=== PATIENT | female | born 1965 | race Caucasian/White ===

== ENCOUNTER 2020-07-19 11:36 | Outpatient (CLI) | payer OTHER, SELFPAY ==
[2020-07-19 12:22] LABS: Hematocrit 41.3 % (37.0-47.0); Hemoglobin 13.5 g/dL (12.0-15.0)
[2020-07-19 12:46] LABS: Iron 106 ug/dL (37-170)
[2020-07-19 12:55] LABS: Percent Iron Saturation 27 % (20-50)
[2020-07-19 13:09] LABS: Thyroid Stimulating Hormone 0.827 uIU/mL (0.465-4.680)
[2020-07-19 13:14] LABS: Vitamin D 25 Hydroxy 17.9 ng/mL
== END 2020-07-19 11:37 | disposition home or self-care (01) ==
LOC: ANHLAB 11:39
PROVIDERS: PCP Internal Medicine; Visit Provider Internal Medicine
DX: E03.9 Hypothyroidism, unspecified (principal); E55.9 Vitamin D deficiency, unspecified; D50.9 Iron deficiency anemia, unspecified; E53.8 Deficiency of other specified B group vitamins; D64.9 Anemia, unspecified
CPT/HCPCS: 36415; 82306; 82607; 82728; 83540; 83550; 84443; 85014; 85018

== ENCOUNTER 2021-01-25 11:25 | Emergency (ER) | payer OTHER, SELFPAY ==
[2021-01-25 11:45] VITALS: BP 135/79; PULSE 67; RESP 16; TEMP 36.6; O2SAT 100
--- NOTE | 2021-01-25 11:59 | ED.URI ---
HPI - URI/Sore Throat General Chief Complaint: Upper Respiratory Infection Stated Complaint: Sore throat Time Seen by Provider: 01/25/21 11:59 Source: patient and RN notes reviewed Mode of arrival: ambulatory Limitations: no limitations History of Present Illness HPI Narrative: 55-year-old female presents with concern for 5-day history of sore throat, fatigue, body aches, swollen glands, backaches. Reports she started coughing today. Reports she has been fully vaccinated for Covid. 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 She denies fever, chills, sweats. MD elicited complaint: sore throat Related Data Home Medications Medication Instructions Recorded Confirmed levothyroxine 100 mcg PO DAILY 01/25/21 01/25/21 Allergies Allergy/AdvReac Type Severity Reaction Status Date / Time Penicillins Allergy Mild rash Verified 01/25/21 11:52 Sulfa (Sulfonamide Allergy Unknown RASH Verified 01/25/21 11:52 Antibiotics) tramadol Allergy Unknown Verified 01/25/21 11:52 Review of Systems Review of Systems: Narrative: CONSTITUTIONAL: Reports malaise, fatigue. Denies chills, sweats, or fever. EYES: Denies visual changes, redness, or discharge. ENT: Reports rhinorrhea, congestion, ear fullness. Denies sinus pain, otalgia and sore throat. CARDIOVASCULAR: Denies chest pain, palpitations, or edema. RESPIRATORY: Reports cough. Denies dyspnea. GASTROINTESTINAL: Denies abdominal pain, nausea, vomiting, diarrhea SKIN: Denies rash or itching. MUSCULOSKELETAL: Reports myalgia. NEUROLOGIC: Reports headache. All systems reviewed & are unremarkable except as noted in HPI and below PMFSH Past Medical History Medical History (Updated 01/25/21 @ 12:32 by Apoorva Humphrey NP) Bronchitis Endometriosis History of angina Hyperthyroidism Hypothyroid Pre-diabetes Sleep apnea Surgical History Surgical History (System 03/03/20 @ 08:21 by Eula Boudreaux) History of gastric bypass History of tonsillectomy Social History Social History (System 03/03/20 @ 08:21 by Eula Boudreaux) Smoking packs per day: 1 Smoking cigarettes per day: 20.0 Smoking status: Current every day smoker Alcohol intake: never Gender identity (if verbalized by the patient): Female Comments At time of signature, agree with nursing past medical, surgical, social and family history. There is no relevant family history pertinent to the presenting complaint Exam Narrative: Exam Narrative: GENERAL: Well-appearing, well-nourished, and in no acute distress. HEAD: Normocephalic EYES: PERRLA, conjunctivae clear ENT: Nares clear, turbinates edematous and erythematous, clear discharge. Mucous membranes moist. TM pearly barakat with dull light reflex bilaterally; no tragal tenderness. Oropharynx erythematous without lesions. Tonsils not enlarged and without exudate, no drooling, no hoarseness, no trismus, uvula midline. NECK: Supple. No lymphadenopathy CHEST: Clear to auscultation, breath sounds equal. No wheezing, rhonchi, rales, or stridor. No respiratory distress, speaks in full sentences. HEART: Regular rate and rhythm. No murmur heard. SKIN: Warm, dry, no rash. NEURO: Alert and oriented x3. PSYCH: Normal mood and affect Course Course Emergency Course: Patient is aware of diagnosis, understands and agrees to treatment plan. Anticipatory guidance given. Patient agrees to follow-up as directed and is aware of reasons to seek care at the emergency department. Portions of this record may have been created with voice recognition software Vital Signs Vital signs: Vital Signs Temperature 97.9 F 01/25/21 11:45 Pulse Rate 67 01/25/21 11:45 Respiratory Rate 16 01/25/21 11:45 Blood Pressure 135/79 01/25/21 11:45 Pulse Oximetry 100 01/25/21 11:45 Temperature 97.9 F 01/25/21 11:45 Pulse Rate 67 01/25/21 11:45 Respiratory Rate 16 01/25/21 11:45 Blood Pressure 135/79 01/25/21 11:45
== END 2021-01-25 12:36 | disposition home or self-care (01) ==
PROVIDERS: Emergency Provider Nurse Practitioner; PCP Internal Medicine
DX: J06.9 Acute upper respiratory infection, unspecified (principal); Z20.822 Contact with and (suspected) exposure to COVID-19; G47.30 Sleep apnea, unspecified; R73.03 Prediabetes; E03.9 Hypothyroidism, unspecified; E05.90 Thyrotoxicosis, unspecified without thyrotoxic crisis or storm; N80.9 Endometriosis, unspecified; F17.210 Nicotine dependence, cigarettes, uncomplicated
CPT/HCPCS: 87081; 87426; 87880; 99213; C9803; G0463

== ENCOUNTER 2021-04-28 16:13 | Emergency (ER) | payer OTHER, SELFPAY ==
[2021-04-28 16:23] VITALS: BP 121/63; PULSE 82; RESP 16; TEMP 37; O2SAT 100
--- NOTE | 2021-04-28 16:36 | ED.URI ---
HPI - URI/Sore Throat General Chief Complaint: Upper Respiratory Infection Stated Complaint: Sore throat Time Seen by Provider: 04/28/21 16:36 Source: patient and RN notes reviewed Mode of arrival: ambulatory Limitations: no limitations History of Present Illness HPI Narrative: 55 year old female who presents to [facility] care with complaints of 1.5 weeks of complaints of frontal headache, pressure to face with pain to throat with swallowing. Patient states that it feels like someone is squeezing her throat,she has increase tiredness, loss of appetite, and some nasal congestion with drainage and pressure to her ears. Patient denies any shortness of breath, wheezing, or acute cough, respirations are even and nonlabored, SAO2 100% on room air. MD elicited complaint: sore throat Onset (ago): week(s) (1.5) Consistency: progressively worsening Description of mucous: clear Able to tolerate fluids by mouth: Yes Exacerbating factors: swallowing Relieving factors: nothing Associated symptoms: headache, rhinorrhea, nasal congestion, sore throat and other (ear pressure, back pain) Related Data Home Medications Medication Instructions Recorded Confirmed levothyroxine 100 mcg PO DAILY 01/25/21 01/25/21 Allergies Allergy/AdvReac Type Severity Reaction Status Date / Time Penicillins Allergy Mild rash Verified 04/28/21 16:35 Sulfa (Sulfonamide Allergy Unknown RASH Verified 04/28/21 16:35 Antibiotics) tramadol Allergy Unknown Verified 04/28/21 16:35 Review of Systems Review of Systems: Narrative: CONSTITUTIONAL: Denies fever, chills, or sweats. EYES: Denies visual changes, redness, or discharge. ENT: Positive for rhinorrhea, congestion, sore throat, pressure to her ears. CARDIOVASCULAR: Denies chest pain, palpitations, or edema. RESPIRATORY: Denies cough or dyspnea. GASTROINTESTINAL: Denies abdominal pain, nausea, vomiting, or diarrhea. GENITOURINARY: Denies dysuria or hematuria. SKIN: Denies rash or itching. MUSCULOSKELETAL:reports lumbar back pain, joint pain, or myalgia. NEUROLOGIC: Positive for frontal headache, no numbness, or weakness. PSYCHIATRIC: Denies anxiety or depression. All systems reviewed & are unremarkable except as noted in HPI and below PMFSH Past Medical History Medical History Bronchitis Endometriosis History of angina Hyperthyroidism Hypothyroid Pre-diabetes Sleep apnea Surgical History Surgical History History of gastric bypass History of tonsillectomy Family History Family History (Updated 05/03/21 @ 14:10 by Aury Galvan NP) Other Heart disease Hypertension Social History Social History Smoking packs per day: 1 Smoking cigarettes per day: 20.0 Smoking status: Current every day smoker Alcohol intake: never Gender identity (if verbalized by the patient): Female Comments At time of signature, agree with nursing past medical, surgical, social and family history. There is no relevant family history pertinent to the presenting complaint Exam Narrative: Exam Narrative: GENERAL: Well-appearing, well-nourished, and in no acute distress. HEAD: Normocephalic, atraumatic. EYES: PERRLA and EOMI. ENT: Nares red, clear rhinorrhea no epistaxis. Mucous membranes moist.TM's normal with good light reflex, Throat red with no exudates or lesions, no tonsil enlargement post nasal drainage noted, NECK: Supple. no lymphadenopathy CHEST: Clear to auscultation. No respiratory distress.SAO2 100% on room air HEART: Regular rate and rhythm. No murmur heard. Normal peripheral pulses. ABDOMEN: Soft, nontender, nondistended, normal active bowel sounds. EXTREMITIES: Normal range of motion. No edema. SKIN: Warm, dry, no rash. NEURO: No focal deficits. Alert and oriented x3. Course Vital Signs Vital signs: Vital Signs Temperature 3
== END 2021-04-28 17:14 | disposition home or self-care (01) ==
PROVIDERS: Emergency Provider Registered Nurse; PCP Internal Medicine
DX: J06.9 Acute upper respiratory infection, unspecified (principal); J02.9 Acute pharyngitis, unspecified; F17.210 Nicotine dependence, cigarettes, uncomplicated; Z98.84 Bariatric surgery status; N80.9 Endometriosis, unspecified; E03.9 Hypothyroidism, unspecified; G47.30 Sleep apnea, unspecified; I20.9 Angina pectoris, unspecified; E05.90 Thyrotoxicosis, unspecified without thyrotoxic crisis or storm
CPT/HCPCS: 87081; 87880; 99213; G0463

== ENCOUNTER 2021-12-11 16:14 | Outpatient (CLI) | payer OTHER, SELFPAY ==
[2021-12-11 17:54] LABS: Basophils Percent Auto 0.5 % (0.2-1.2); Eosinophils Absolute Auto 0.3 K/mm3 (0-0.3); Eosinophils Percent Auto 4.5 % (0-4.4); Hematocrit 41.7 % (37.0-47.0); Hemoglobin 13.2 g/dL (12.0-15.0); Immature Granulocyte Absolute 0.01 K/mm3 (0.00-0.031); Immature Granulocyte Percent A 0.2 % (0-0.5); Lymphocytes Absolute Auto 2.28 K/mm3 (0.9-3.2); Lymphocytes Percent Auto 34.4 % (18.3-44.2); Mean Corpuscular HGB Conc 31.7 g/dl (32-36); Mean Corpuscular Hemoglobin 30.1 pg (26-34); Mean Corpuscular Volume 95.2 fl (80-100); Mean Platelet Volume 9.4 fl (7.4-10.4); Monocytes Absolute Auto 0.4 K/mm3 (0.1-0.6); Monocytes Percent Auto 5.7 % (2.6-8.5); Neutrophils Absolute Auto 3.6 K/mm3 (1.3-6.7); Neutrophils Percent Auto 54.7 % (45.5-73.1); Platelet Count Result 204 k/mm3 (150-375); Red Blood Count 4.38 M/mm3 (4.2-5.4); Red Cell Distribution Width 12.8 % (11.5-14.5); White Blood Count 6.6 K/mm3 (4.5-10.0)
[2021-12-11 18:56] LABS: Iron 63 ug/dL (37-170)
[2021-12-11 19:05] LABS: Percent Iron Saturation 15 % (20-50)
== END 2021-12-11 16:15 | disposition home or self-care (01) ==
LOC: ANHLAB 16:17
PROVIDERS: PCP Internal Medicine; Visit Provider Internal Medicine
DX: D50.9 Iron deficiency anemia, unspecified (principal); D64.9 Anemia, unspecified
CPT/HCPCS: 36415; 82728; 83540; 83550; 85025

== ENCOUNTER 2022-06-18 14:48 | Outpatient (CLI) | payer OTHER, SELFPAY ==
[2022-06-18 15:12] LABS: Hematocrit 41.7 % (37.0-47.0); Hemoglobin 13.1 g/dL (12.0-15.0); Mean Corpuscular HGB Conc 31.4 g/dl (32-36); Mean Corpuscular Hemoglobin 29.2 pg (26-34); Mean Corpuscular Volume 93.1 fl (80-100); Mean Platelet Volume 9.1 fl (7.4-10.4); Platelet Count Result 233 k/mm3 (150-375); Red Blood Count 4.48 M/mm3 (4.2-5.4); Red Cell Distribution Width 13.1 % (11.5-14.5); White Blood Count 7.2 K/mm3 (4.5-10.0)
[2022-06-18 15:20] LABS: Alanine Aminotransferase 13 U/L (6-35); Albumin Level 4.2 g/dL (3.5-5.1); Alkaline Phosphatase 88 U/L (38-126); Anion Gap 7 mmol/L (8-16); Aspartate Amino Transferase 23 U/L (14-36); Bilirubin,Total 0.5 mg/dL (0.2-1.3); Blood Urea Nitrogen 10 mg/dL (7-17); Calcium 9.1 mg/dL (8.4-10.2); Carbon Dioxide 29 mmol/L (22-30); Chloride 102 mmol/L (98-107); Cholesterol 216 mg/dL (0-200); Estimated Glomerular Filt Rate > 60; Glucose 94 mg/dL (65-110); HDL Direct 71 mg/dL; Potassium 3.8 mmol/L (3.4-5.0); Sodium 138 mmol/L (137-145); Triglycerides 117 mg/dL (<150)
[2022-06-18 15:27] LABS: Hemoglobin A1C 5.2 % (<5.7)
[2022-06-18 15:29] LABS: Iron 115 ug/dL (37-170)
[2022-06-18 15:30] LABS: LDL Cholesterol Direct 95 mg/dL
[2022-06-18 15:39] LABS: Percent Iron Saturation 28 % (20-50)
[2022-06-18 15:50] LABS: Thyroid Stimulating Hormone 0.311 uIU/mL (0.465-4.680)
[2022-06-18 16:07] LABS: Vitamin D 25 Hydroxy 17.9 ng/mL
== END 2022-06-18 14:49 | disposition home or self-care (01) ==
LOC: ANHLAB 14:50
PROVIDERS: PCP Internal Medicine; Visit Provider Nurse Practitioner
DX: R73.03 Prediabetes (principal); E55.9 Vitamin D deficiency, unspecified; Z13.220 Encounter for screening for lipoid disorders; E03.9 Hypothyroidism, unspecified; E53.8 Deficiency of other specified B group vitamins; Z79.899 Other long term (current) drug therapy; D50.9 Iron deficiency anemia, unspecified
CPT/HCPCS: 36415; 80053; 80061; 82306; 82607; 83036; 83540; 83550; 84443; 85027

== ENCOUNTER 2022-06-22 14:20 | Emergency (ER) | payer OTHER, SELFPAY ==
[2022-06-22 14:29] VITALS: BP 110/73; PULSE 72; RESP 16; TEMP 37.3; O2SAT 99
--- NOTE | 2022-06-22 14:41 | ED.URI ---
HPI - URI/Sore Throat General Chief Complaint: Upper Respiratory Infection Stated Complaint: uri Time Seen by Provider: 06/22/22 14:43 History of Present Illness HPI Narrative: Estela Ramirez is a 57 yo female with hypothyroid, chronic back pain, who comes to [facility] with 1 day of symptoms of sore throat fever not feeling well. She came here from work she is being tested for both COVID and strep based on her symptoms Related Data Allergies Allergy/AdvReac Type Severity Reaction Status Date / Time Penicillins Allergy Mild rash Verified 06/22/22 14:27 Sulfa (Sulfonamide Allergy Unknown RASH Verified 06/22/22 14:27 Antibiotics) Review of Systems Review of Systems: CONSTITUTIONAL: Denies fever, chills, sweats. EYES: Denies visual changes, redness, discharge. ENT: Denies rhinorrhea, congestion, sore throat, otalgia. CARDIOVASCULAR: Denies chest pain, palpitations, edema. RESPIRATORY: Denies dyspnea, wheezing, cough GASTROINTESTINAL: Denies abdominal pain, nausea, vomiting, diarrhea. GENITOURINARY: Denies dysuria, hematuria, abnormal discharge SKIN: Denies rash or itching. NEUROLOGIC: Denies numbness, or focal weakness. PSYCHIATRIC: Denies anxiety or depression. Sore throat and fever PMFSH Past Medical History Medical History Bronchitis Endometriosis History of angina Hyperthyroidism Hypothyroid Pre-diabetes Sleep apnea Surgical History Surgical History History of gastric bypass History of tonsillectomy Family History Family History Other Heart disease Hypertension Social History Social History Smoking packs per day: 1 Smoking cigarettes per day: 20.0 Smoking status: Current some day smoker Alcohol intake: never Gender identity (if verbalized by the patient): Female Comments At time of signature, I agree with nursing past medical, surgical, social and family history. There is no relevant family history pertinent to the presenting complaint. Exam Narrative: GENERAL: This is a well-nourished, well-developed patient, in mild distress. Is fatigued HEAD: normocephalic, atraumatic. EYES: . Sclera clear/white. Vision is grossly intact. EARS: External ears normal, auditory canals clear and without drainage, TMs normal without perforation. Hearing grossly intact. NOSE: External nose normal without nasal discharge, nares without redness, no rhinorrhea. THROAT: Mucous membranes moist, posterior pharynx erythema NECK: Neck supple, non-tender CARDIOVASCULAR: Regular rate and rhythm without murmurs, gallops, or rubs. RESPIRATORY: Clear to auscultation. Breath sounds equal bilaterally. No wheezes, rales, or rhonchi. GASTROINTESTINAL: Abdomen soft, non-tender, SKIN: warm, intact with no suspicious lesions or rash, good texture and turgor. NEURO: awake, alert, and oriented to person, place and time. There were no obvious focal neurologic abnormalities. Steady gait EXTREMITIES: Normal range of motion. BACK: Nontender without deformity Course Course Emergency Course: Patient comes with complaints of fever and upper respiratory symptoms started yesterday Tested for COVID and strep Positive for COVID Discussed with patient guidelines from the CDC currently of 5 days off work 5 days with mask Level of Care: Express Care Visit Vital Signs Vital signs: Vital Signs Temperature 99.2 F 06/22/22 14:29 Pulse Rate 72 06/22/22 14:29 Respiratory Rate 16 06/22/22 14:29 Blood Pressure 110/73 06/22/22 14:29 Pulse Oximetry 99 06/22/22 14:29 Oxygen Delivery Room Air 06/22/22 14:29 Temperature 99.2 F 06/22/22 14:29 Pulse Rate 72 06/22/22 14:29 Respiratory Rate 16 06/22/22 14:29 Blood Pressure 110/73 06/22/22 14:29 Pulse Oximetry 99 06/22/22 14:29 Oxygen D
== END 2022-06-22 15:26 | disposition home or self-care (01) ==
PROVIDERS: Emergency Provider Nurse Practitioner; PCP Internal Medicine
DX: U07.1 COVID-19 (principal); N80.9 Endometriosis, unspecified; E03.9 Hypothyroidism, unspecified; R73.03 Prediabetes; G47.30 Sleep apnea, unspecified; E05.90 Thyrotoxicosis, unspecified without thyrotoxic crisis or storm; I20.9 Angina pectoris, unspecified; Z98.84 Bariatric surgery status; F17.210 Nicotine dependence, cigarettes, uncomplicated
CPT/HCPCS: 87426; 87880; 99213; C9803; G0463

== ENCOUNTER 2022-11-22 15:23 | Outpatient (CLI) | payer OTHER, SELFPAY ==
[2022-11-24 15:30] LABS: PCP NEGATIVE ng/mL (<25)
[2022-12-02 08:53] LABS: Amphetamines NEGATIVE; Barbiturates NEGATIVE; Marijuana Metabolites NEGATIVE
[2022-12-02 08:54] LABS: Benzodiazepines NEGATIVE; Cocaine Metabolites NEGATIVE
== END 2022-11-22 15:24 | disposition home or self-care (01) ==
PROVIDERS: PCP Internal Medicine; Visit Provider Internal Medicine
DX: Z79.899 Other long term (current) drug therapy (principal)
CPT/HCPCS: 80307

== ENCOUNTER 2022-11-28 11:51 | Outpatient (CLI) | payer OTHER, SELFPAY ==
[2022-11-28 12:22] LABS: Hematocrit 38.5 % (37.0-47.0); Hemoglobin 12.1 g/dL (12.0-15.0); Mean Corpuscular HGB Conc 31.4 g/dl (32-36); Mean Corpuscular Hemoglobin 28.8 pg (26-34); Mean Corpuscular Volume 91.7 fl (80-100); Mean Platelet Volume 9.2 fl (7.4-10.4); Platelet Count Result 214 k/mm3 (150-375); White Blood Count 6.9 K/mm3 (4.5-10.0)
[2022-11-28 12:35] LABS: Alanine Aminotransferase 19 U/L (6-35); Albumin Level 3.9 g/dL (3.5-5.1); Alkaline Phosphatase 88 U/L (38-126); Anion Gap 3 mmol/L (8-16); Aspartate Amino Transferase 21 U/L (14-36); Bilirubin,Total 0.6 mg/dL (0.2-1.3); Blood Urea Nitrogen 11 mg/dL (7-17); Calcium 8.6 mg/dL (8.4-10.2); Carbon Dioxide 29 mmol/L (22-30); Chloride 108 mmol/L (98-107); Cholesterol 238 mg/dL (0-200); Estimated Glomerular Filt Rate > 60; Glucose 93 mg/dL (65-110); HDL Direct 74 mg/dL; Potassium 3.7 mmol/L (3.4-5.0); Sodium 140 mmol/L (137-145); Triglycerides 68 mg/dL (<150)
[2022-11-28 12:45] LABS: LDL Cholesterol Direct 113 mg/dL
[2022-11-28 12:58] LABS: Iron 117 ug/dL (37-170)
[2022-11-28 13:03] LABS: Thyroid Stimulating Hormone 0.625 uIU/mL (0.465-4.680)
[2022-11-28 13:07] LABS: Free T4 Free Thyroxine 1.41 ng/mL (0.78-2.19)
[2022-11-28 13:17] LABS: Percent Iron Saturation 27 % (20-50)
== END 2022-11-28 11:52 | disposition home or self-care (01) ==
LOC: ANHLAB 11:53
PROVIDERS: PCP Internal Medicine; Visit Provider Nurse Practitioner
DX: D50.9 Iron deficiency anemia, unspecified (principal); E78.5 Hyperlipidemia, unspecified; E03.9 Hypothyroidism, unspecified; R73.03 Prediabetes; E53.8 Deficiency of other specified B group vitamins; Z98.84 Bariatric surgery status; E55.9 Vitamin D deficiency, unspecified
CPT/HCPCS: 36415; 80053; 80061; 82306; 82607; 83036; 83540; 83550; 84439; 84443; 85027

== ENCOUNTER 2023-03-23 12:31 | Emergency (ER) | payer OTHER, SELFPAY ==
[2023-03-23 12:45] VITALS: BP 117/82; PULSE 73; RESP 16; TEMP 37.4; O2SAT 100
--- NOTE | 2023-03-23 13:16 | ED.GENADULT ---
HPI - General Adult General Chief complaint: Extremity Injury, Lower Stated complaint: Left Leg Pain Source: patient Mode of arrival: ambulatory Limitations: no limitations History of Present Illness HPI narrative: Patient presents for evaluation of pain in the left lower extremity for the past 6 weeks. She cannot identify any precipitating cause or injury. She initially had some bruising present with one area of induration beneath that. Since that time bruising has improved but she now reports 3 areas of induration in the affected area. Denies any significant leg swelling or erythema. No personal or family history of DVT or PE. She is not on exogenous estrogen. No recent surgeries. She does smoke approximately 1/2 pack of cigarettes per week. Denies any chest pain or shortness of breath. She reports a constant squeezing throbbing pain in the left lower leg. Related Data Allergies Allergy/AdvReac Type Severity Reaction Status Date / Time Penicillins Allergy Mild rash Verified 03/23/23 12:44 Sulfa (Sulfonamide Allergy Unknown RASH Verified 03/23/23 12:44 Antibiotics) Review of Systems Review of Systems: CONSTITUTIONAL: Denies fever, chills, or sweats. EYES: Denies visual changes, redness, or discharge. ENT: Denies rhinorrhea, congestion, sore throat, or otalgia. CARDIOVASCULAR: Denies chest pain, palpitations, or edema. RESPIRATORY: Denies cough or dyspnea. GASTROINTESTINAL: Denies abdominal pain, nausea, vomiting, or diarrhea. GENITOURINARY: Denies dysuria or hematuria. SKIN: Reports recent bruising to the left lower extremity MUSCULOSKELETAL: Reports pain and areas of induration to the left lower extremity. NEUROLOGIC: Denies headache, numbness, dizziness, or weakness. PSYCHIATRIC: Denies anxiety or depression. [facility] Past Medical History Medical History Bronchitis Endometriosis History of angina Hyperthyroidism Hypothyroid Pre-diabetes Sleep apnea Surgical History Surgical History History of gastric bypass History of tonsillectomy Family History Family History Other Heart disease Hypertension Social History Social History Smoking packs per day: 0.2 Smoking cigarettes per day: 4.0 Smoking status: Current every day smoker Alcohol intake: never Lack of Transportation: No Lack of Food: Sometimes True Current Housing: I Have Housing Concerned About Future Housing: No Difficulty Paying Gas/Electric Bills: No Difficulty Paying for Meds: YES Currently Unemployed: No Education: High School Diploma/GED Difficulty w/ Childcare or Family Care: No Living arrangements: with family Gender identity (if verbalized by the patient): Female Exam Narrative: GENERAL: Well-appearing, well-nourished, and in no acute distress. HEAD: Normocephalic, atraumatic. EYES: PERRLA and EOMI. ENT: Nares clear, no rhinorrhea or epistaxis. Mucous membranes moist. Oropharynx without tonsillar hypertrophy exudate or other lesions. Bilateral TMs pearly barakat nonbulging NECK: Supple. No adenopathy or masses. No carotid bruits or JVD CHEST: Clear to auscultation. No respiratory distress. No wheezes rales or rhonchi HEART: Regular rate and rhythm. No murmur heard. Normal peripheral pulses. ABDOMEN: Soft, nontender, nondistended, normal active bowel sounds. EXTREMITIES: Normal range of motion. There are(3) areas of induration noted to the left lower leg, all less than 5 mm in size which are tender to palpation. No edema. SKIN: Skin is warm moist and intact NEURO: No focal deficits. Alert and oriented x3. PSYCH: Normal mood and affect. Course Course Emergency Course: This is a 57-year-old female who presented for evaluation of induration and pa
== END 2023-03-23 13:15 | disposition short-term general hospital (02) ==
PROVIDERS: Emergency Provider Nurse Practitioner; PCP Family Medicine
DX: M79.662 Pain in left lower leg (principal); F17.210 Nicotine dependence, cigarettes, uncomplicated; N80.9 Endometriosis, unspecified; I25.10 Atherosclerotic heart disease of native coronary artery without angina pectoris; E05.90 Thyrotoxicosis, unspecified without thyrotoxic crisis or storm; E03.9 Hypothyroidism, unspecified; R73.03 Prediabetes; Z98.84 Bariatric surgery status
CPT/HCPCS: 99212; G0463

== ENCOUNTER 2023-03-23 13:30 | Emergency (ER) | payer OTHER, SELFPAY ==
--- NOTE | ~2023-03-23 | US_ITS ---
EXAMINATION: US venous doppler [facility] DATE: 03/23/2023 15:06 INDICATION: Left lower limb pain, swelling and palpable mass/lump TECHNIQUE: Grayscale ultrasound images without and with compression and Doppler ultrasound images of the left lower extremity veins were obtained. COMPARISON: None. FINDINGS: The visualized portions of left common femoral vein, profunda (deep) femoral vein, femoral vein, popl iteal vein, peroneal veins, posterior tibial veins, gastrocnemius vein and greater saphenous vein out flow are patent. There is increased echogenicity consistent with inflammation/edema in the subcutaneo us fat at the region of the palpable abnormalities without discrete abnormal masses or fluid collecti ons. IMPRESSION: 1. No deep venous thrombosis in the left lower limb. Reviewed, dictated and finalized at location A.
[2023-03-23 13:34] VITALS: BP 138/76; PULSE 73; RESP 16; TEMP 37; O2SAT 100
--- NOTE | 2023-03-23 15:02 | PC.NURSE ---
Patient off unit to US.
--- NOTE | 2023-03-23 15:21 | ED.LOWEXIN ---
HPI - Extremity Injury (Lower) General Chief Complaint: Extremity Injury, Lower Stated Complaint: left leg pain Time Seen by Provider: 03/23/23 13:59 Source: patient Mode of arrival: ambulatory Limitations: no limitations History of Present Illness HPI Narrative: Patient is a 57-year-old female who presents to ED with report of left calf pain. Patient reports having intermittent pain in her left calf for the last 6 weeks. She reports she noticed a tender knot to her upper calf when the pain first began. The larger knot has now progressed to three smaller knots. She complains of diffuse aching pain. Denies significant swelling. Denies warmth or erythema. Denies fevers. Denies numbness/tingling. Denies chest pain or difficulty breathing. Patient went to an urgent care today and was referred to the ED for ultrasound to rule out DVT versus superficial thrombophlebitis. Patient denies any history of blood clots. No known risk factors. Related Data Allergies Allergy/AdvReac Type Severity Reaction Status Date / Time Penicillins Allergy Mild rash Verified 03/23/23 14:13 Sulfa (Sulfonamide Allergy Unknown RASH Verified 03/23/23 14:13 Antibiotics) Review of Systems Review of Systems: CONSTITUTIONAL: Denies fever, chills, or sweats. SKIN: See HPI. MUSCULOSKELETAL: See HPI. NEUROLOGIC: Denies tingling, numbness, or weakness. All systems reviewed & are unremarkable except as noted in HPI and below PMFSH Past Medical History Medical History Bronchitis Endometriosis History of angina Hyperthyroidism Hypothyroid Pre-diabetes Sleep apnea Surgical History Surgical History History of gastric bypass History of tonsillectomy Family History Family History Other Heart disease Hypertension Social History Social History Smoking packs per day: 0.2 Smoking cigarettes per day: 4.0 Smoking status: Current every day smoker Alcohol intake: never Lack of Transportation: No Lack of Food: Sometimes True Current Housing: I Have Housing Concerned About Future Housing: No Difficulty Paying Gas/Electric Bills: No Difficulty Paying for Meds: YES Currently Unemployed: No Education: High School Diploma/GED Difficulty w/ Childcare or Family Care: No Living arrangements: with family Gender identity (if verbalized by the patient): Female Exam Narrative: GENERAL: Well appearing, well-nourished, non-toxic, in no acute distress. HEAD: Normocephalic, atraumatic. NECK: Supple. No adenopathy, no masses. RESPIRATORY: Airway patent, respirations nonlabored. Clear to auscultation bilaterally, no rales, rhonchi, wheezing. CARDIOVASCULAR: Regular rate and rhythm without murmurs, rubs, or gallops. Pedal pulses 2+ and equal bilaterally. MUSCULOSKELETAL: Moves all extremities. Strength/ROM intact without gross deformities. Mild tenderness to palpation throughout upper left posterior calf. 3 very small nodule/area of induration to upper calf, focally tender. No diffuse swelling to lower extremity. No erythema to lower extremity. Sensation intact. Good distal capillary refill. SKIN: Warm, dry, normal color. No rashes. NEURO: A&O X3. Speech clear. Cranial nerves II-XII grossly intact. Steady gait. No ataxic movements. PSYCHIATRIC: Appropriate mood and affect. Normal interaction. Course Vital Signs Vital signs: Vital Signs Temperature 98.6 F 03/23/23 13:34 Pulse Rate 73 03/23/23 13:34 Respiratory Rate 16 03/23/23 13:34 Blood Pressure 138/76 03/23/23 13:34 Pulse Oximetry 100 03/23/23 13:34 Temperature 98.6 F 03/23/23 13:34 Pulse Rate 73 03/23/23 13:34 Respiratory Rate 16 03/23/23 13:34 Blood Pressure 138/76 03/23/23 13:34 Pulse
[2023-03-23] MEDS: KETOROLAC (*BKC) 60 MG/2 ML VIAL IM (15:43)
== END 2023-03-23 16:06 | disposition home or self-care (01) ==
PROVIDERS: Emergency Provider Physician Assistant; PCP Family Medicine
DX: M79.662 Pain in left lower leg (principal); L08.9 Local infection of the skin and subcutaneous tissue, unspecified; N80.9 Endometriosis, unspecified; G47.30 Sleep apnea, unspecified; R73.03 Prediabetes; F17.210 Nicotine dependence, cigarettes, uncomplicated
CPT/HCPCS: 93971; 96372; 99284; J1885

== ENCOUNTER 2023-05-04 16:59 | Emergency (ER) | payer OTHER, SELFPAY ==
[2023-05-04 17:08] VITALS: BP 124/66; PULSE 80; RESP 16; TEMP 36.4; O2SAT 100
[2023-05-04 17:10] VITALS: BP 124/66; PULSE 80; RESP 16; TEMP 36.4; O2SAT 100
--- NOTE | 2023-05-04 17:40 | ED.URI ---
HPI - URI/Sore Throat General Chief Complaint: Upper Respiratory Infection Stated Complaint: Sinus Source: patient Mode of arrival: ambulatory Limitations: no limitations History of Present Illness HPI Narrative: 57-year-old female presents to [facility] with complaints sore throat, bilateral ear pressure, chest congestion, cough and sneezing the past 2 days. Patient reports that she has a history of chronic wheezing and normally uses her albuterol inhaler which she has since run out of. Patient denies fever, body aches, chills, nausea, vomiting or diarrhea. Patient denies sick contacts. Patient denies recent travel. Patient reports that she has been taking [id number] Tylenol and eating ice with minimal relief MD elicited complaint: sore throat, rhinorrhea and nasal congestion Onset (ago): day(s) (2) Able to tolerate fluids by mouth: Yes Exacerbating factors: swallowing Treatments prior to arrival: acetaminophen Related Data Allergies Allergy/AdvReac Type Severity Reaction Status Date / Time Penicillins Allergy Mild rash Verified 05/04/23 17:09 Sulfa (Sulfonamide Allergy Unknown RASH Verified 05/04/23 17:09 Antibiotics) Review of Systems Constitutional: Constitutional: Denies chills, Denies fatigue, Denies fever(s) and Denies weakness ENT: Denies dizziness, Denies epistaxis, Reports nasal congestion and Reports sore throat Comments: pain, bilateral ear pressure and pain Cardiovascular: Cardiovascular: Denies chest pain Respiratory: Respiratory: Reports cough, Denies dyspnea and Denies wheezing Gastrointestinal: Gastrointestinal: Denies diarrhea, Denies nausea and Denies vomiting Integumentary/Breasts: Skin/Breast: Denies rash Neurologic: Denies dizziness, Denies syncope and Denies headache(s) [facility] Past Medical History Medical History Bronchitis Endometriosis History of angina Hyperthyroidism Hypothyroid Pre-diabetes Sleep apnea Surgical History Surgical History History of gastric bypass History of tonsillectomy Family History Family History Other Heart disease Hypertension Social History Social History Smoking packs per day: 0.2 Smoking cigarettes per day: 4.0 Smoking status: Current every day smoker Alcohol intake: never Lack of Transportation: No Lack of Food: Sometimes True Current Housing: I Have Housing Concerned About Future Housing: No Difficulty Paying Gas/Electric Bills: No Difficulty Paying for Meds: YES Currently Unemployed: No Education: High School Diploma/GED Difficulty w/ Childcare or Family Care: No Living arrangements: with family Gender identity (if verbalized by the patient): Female Comments At time of signature, I agree with nursing past medical, surgical, social and family history. There is no relevant family history pertinent to the presenting complaint. Exam Const: General: healthy appearing and no acute distress Nutritional Appearance: well nourished Orientation/consciousness: patient oriented x3 Limitations: no limitations HENMT: Head: normal to inspection Ears: external ears normal, EAC's normal and TM abnormal dull bilateral and erythematous on the right and on the left Mouth: Yes moist mucous membranes Throat: uvula midline Other: mild erythema noted to posterior oropharynx Eyes: Conjunctivae: conjunctivae normal Neck: Neck: normal visual inspection and no lymphadenopathy Resp: Effort & Inspection: normal respiratory effort and not labored Auscultation: clear to auscultation bilaterally, no crackles, no rales and no rhonchi Cardio: Rate: regular rate Rhythm: regular rhythm Heart sounds: no murmurs Skin: General skin exam: normal color Rashes: no rashes Wounds: no wounds N
== END 2023-05-04 17:52 | disposition home or self-care (01) ==
PROVIDERS: Emergency Provider Nurse Practitioner Family; PCP Family Medicine
DX: H66.93 Otitis media, unspecified, bilateral (principal); J06.9 Acute upper respiratory infection, unspecified; Z20.822 Contact with and (suspected) exposure to COVID-19; F17.210 Nicotine dependence, cigarettes, uncomplicated; I20.9 Angina pectoris, unspecified; E03.9 Hypothyroidism, unspecified; R73.03 Prediabetes; E05.90 Thyrotoxicosis, unspecified without thyrotoxic crisis or storm; Z98.84 Bariatric surgery status
CPT/HCPCS: 87081; 87426; 87880; 99213; C9803; G0463

== ENCOUNTER 2023-07-19 20:55 | Emergency (ER) | payer OTHER, SELFPAY ==
[2023-07-19 20:56] VITALS: BP 124/79; PULSE 96; RESP 20; TEMP 36.8; O2SAT 99
--- NOTE | 2023-07-19 21:42 | ED.EXTPRO ---
HPI - Extremity Problem General Chief complaint: Extremity Problem,Nontraumatic Stated complaint: left leg swelling and pain Time Seen by Provider: 07/19/23 21:10 History of Present Illness HPI Narrative: Patient is a 58-year-old female presenting with left leg pain. States that she has had pain on the back of her calf for the last day or 2 that is worse with weightbearing. States that she was at work and she was struggling to walk as much as she needed to because of the pain. Denies any trauma. States that it looks more swollen than the right one. No redness. She went to urgent care and was advised to come here to evaluate for DVT. She denies chest pain or shortness of breath. No numbness or weakness. Denies further complaints. Related Data Allergies Allergy/AdvReac Type Severity Reaction Status Date / Time Penicillins Allergy Mild rash Verified 07/19/23 20:55 Sulfa (Sulfonamide Allergy Unknown RASH Verified 07/19/23 20:55 Antibiotics) Review of Systems Review of Systems: All systems reviewed & are unremarkable except as noted in HPI and below PMFSH Past Medical History Medical History Bronchitis Endometriosis History of angina Hyperthyroidism Hypothyroid Pre-diabetes Sleep apnea Surgical History Surgical History History of gastric bypass History of tonsillectomy Family History Family History Other Heart disease Hypertension Social History Social History Smoking packs per day: 0.2 Smoking cigarettes per day: 4.0 Smoking status: Current every day smoker Alcohol intake: never Lack of Transportation: No Lack of Food: Sometimes True Current Housing: I Have Housing Concerned About Future Housing: No Difficulty Paying Gas/Electric Bills: No Difficulty Paying for Meds: YES Currently Unemployed: No Education: High School Diploma/GED Difficulty w/ Childcare or Family Care: No Living arrangements: with family Gender identity (if verbalized by the patient): Female Exam Narrative: GENERAL: Well-appearing, in no acute distress, pleasant and cooperative HEAD: Normocephalic, atraumatic. EYES: PERRLA and EOMI. ENT: Grossly unremarkable NECK: Supple. CHEST: No respiratory distress. HEART: Regular rate and rhythm ABDOMEN: Nondistended EXTREMITIES: Mild tenderness of posterior upper left calf, no erythema or swelling that I can appreciate, DP pulses 2+ bilaterally SKIN: Warm, dry, no rash. NEURO: No focal deficits. Alert and oriented x3. PSYCH: Normal mood and affect. Course Vital Signs Vital signs: Vital Signs Temperature 98.3 F 07/19/23 20:56 Pulse Rate 96 07/19/23 20:56 Respiratory Rate 20 07/19/23 20:56 Blood Pressure 124/79 07/19/23 20:56 Pulse Oximetry 99 07/19/23 20:56 Oxygen Delivery Room Air 07/19/23 20:56 Temperature 98.3 F 07/19/23 20:56 Pulse Rate 62 07/19/23 23:46 Respiratory Rate 16 07/19/23 23:46 Blood Pressure 143/87 H 07/19/23 23:46 Pulse Oximetry 100 07/19/23 23:46 Oxygen Delivery Room Air 07/19/23 20:56 MDM - Extremity (Nontraumatic) MDM Narrative Medical decision making narrative: Patient is a 58-year-old female presenting with left calf pain. Vitals are normal. Exam remarkable for the above. Unfortunately, we do not have ultrasound at this time. We will check a D-dimer, give a shot of Toradol. D-dimer is within normal limits. Patient is safe for outpatient management. Advised Tylenol for pain control. We will send in a prescription for muscle relaxers. Advised PCP follow-up. Appropriate return precautions given. Patient voiced understanding and is agreeable with plan. Discharged in stable condition. Differential Diagnosis Differential diagnosis: Likely cellulit
[2023-07-19] MEDS: KETOROLAC 30 MG/ML VIAL (*BKC) IM (22:07)
[2023-07-19 23:07] LABS: D Dimer 0.32 ug/mL (<0.48)
[2023-07-19 23:46] VITALS: BP 143/87; PULSE 62; RESP 16; O2SAT 100
== END 2023-07-19 23:47 | disposition home or self-care (01) ==
PROVIDERS: Emergency Provider Emergency Medicine; PCP Family Medicine
DX: M79.662 Pain in left lower leg (principal); R73.03 Prediabetes; G47.30 Sleep apnea, unspecified; N80.9 Endometriosis, unspecified; Z98.84 Bariatric surgery status; F17.210 Nicotine dependence, cigarettes, uncomplicated
CPT/HCPCS: 36415; 85380; 96372; 99283; J1885

== ENCOUNTER 2023-10-15 16:34 | Emergency (ER) | payer OTHER, SELFPAY ==
--- NOTE | 2023-10-15 16:36 | ED.URI ---
HPI - URI/Sore Throat General Chief Complaint: Upper Respiratory Infection Stated Complaint: cough,fingers/toes tingling Time Seen by Provider: 10/15/23 16:36 Source: patient Mode of arrival: ambulatory Limitations: no limitations History of Present Illness HPI Narrative: Estela is a 58-year-old female patient presenting to the clinic today with complaints of cough, fever, chills, body aches, numbness and tingling in her fingers and toes, and urinary symptoms. States that she was at her doctor a few days ago but it was inconclusive whether she had a urinary tract infection at that time were not. States she is having some frequency with urination pain MD elicited complaint: sore throat and nasal congestion Related Data Home Medications Medication Instructions Recorded Confirmed clindamycin phosphate 1 % topical See Rx Instructions .Route .COMPLEX 10/15/23 10/15/23 gel clobetasol 0.05 % topical ointment See Rx Instructions .Route .COMPLEX 10/15/23 10/15/23 Allergies Allergy/AdvReac Type Severity Reaction Status Date / Time Penicillins Allergy Mild rash Verified 10/15/23 16:37 Sulfa (Sulfonamide Allergy Unknown RASH Verified 10/15/23 16:37 Antibiotics) Review of Systems Review of Systems: Pertinent positives per HPI. Patient denies any fever, chills, rash, headache, visual changes, dizziness, shortness of breath, chest pain, palpitations, nausea, vomiting, diarrhea, constipation, or any abdominal pain. PMFSH Past Medical History Medical History Bronchitis Endometriosis History of angina Hyperthyroidism Hypothyroid Pre-diabetes Sleep apnea Surgical History Surgical History History of gastric bypass History of tonsillectomy Family History Family History Other Heart disease Hypertension Social History Social History Smoking packs per day: 0.2 Smoking cigarettes per day: 4.0 Smoking status: Current every day smoker Alcohol intake: never Lack of Transportation: No Lack of Food: Sometimes True Current Housing: I Have Housing Concerned About Future Housing: No Difficulty Paying Gas/Electric Bills: No Difficulty Paying for Meds: YES Currently Unemployed: No Education: High School Diploma/GED Difficulty w/ Childcare or Family Care: No Living arrangements: with family Gender identity (if verbalized by the patient): Female Comments At the time of my signature, I reviewed and agree with the nursing past medical, surgical, social, and family history. There is no relevant family history pertinent to the patient complaint. Exam Narrative: General: Well-developed, well nourished, in no apparent distress Head: Normocephalic, atraumatic Eyes: Pupils equally round and reactive to light bilaterally, EOM intact, sclera and conjunctive clear, no discharge, lids normal Ears: TMs intact and clear, ear canals clear, no drainage, grossly hearing normal. Nose: Nares patent, clear nasal discharge, no inflammation, no sinus tenderness. Mouth: Oral pharynx without lesions or masses, good dentition, MMM. Neck: Supple, trachea midline, no enlargement of anterior or posterior cervical nodes, no thyroid masses or goiter palpable. Cardio: Regular rate and rhythm, s1 and s2 normal, no murmur appreciated. Resp: Clear to auscultation bilaterally, no rhonchi, rales, wheezing or rubs Abdomen: Soft, pliable, nondistended, bowel sounds present all 4 quadrants, no CVA tenderness, no organomegaly Course Course Emergency Course: Portions of this record may have been created with voice recognition software. Level of Care: Express Care Visit Vital Signs Vital signs: Vital signs reviewed MDM - URI/Sore Throat MDM Narrative Medical decision making n
[2023-10-15 16:57] VITALS: BP 113/71; PULSE 81; RESP 16; TEMP 38.6; O2SAT 98
[2023-10-15 17:07] VITALS: BP 113/71; PULSE 81; RESP 16; TEMP 38.6; O2SAT 98
[2023-10-15] MEDS: ACETAMINOPHEN 500 MG TABLET 1000 MG PO (17:30)
== END 2023-10-15 17:36 | disposition home or self-care (01) ==
PROVIDERS: Emergency Provider Nurse Practitioner Family; PCP Nurse Practitioner
DX: N39.0 Urinary tract infection, site not specified (principal); J06.9 Acute upper respiratory infection, unspecified; H66.003 Acute suppurative otitis media without spontaneous rupture of ear drum, bilateral; Z20.822 Contact with and (suspected) exposure to COVID-19; F17.210 Nicotine dependence, cigarettes, uncomplicated; N80.9 Endometriosis, unspecified; I20.9 Angina pectoris, unspecified; E05.90 Thyrotoxicosis, unspecified without thyrotoxic crisis or storm; E03.9 Hypothyroidism, unspecified; R73.03 Prediabetes; Z98.84 Bariatric surgery status
CPT/HCPCS: 81003; 87086; 87088; 87426; 87804; 99213; A9270; C9803; G0463

== ENCOUNTER 2024-11-24 19:12 | Emergency (ER) | payer OTHER, SELFPAY ==
[2024-11-24 19:37] VITALS: BP 153/86; PULSE 65; RESP 16; TEMP 36.8; O2SAT 99
[2024-11-24 19:41] LABS: EDUAAPPEAR Clear; EDUABILI Negative (Negative); EDUABLOOD 1+ (Negative); EDUACOLOR1 Orange; EDUAGLUCOSE Trace (Negative); EDUAKETONE Trace (Negative); EDUALEUKO 1+ (Negative); EDUANITRATE Positive (Negative); EDUAPH 5.5; EDUAPROTEIN 2+ (Negative); EDUASPGRAVITY 1.025
--- NOTE | 2024-11-24 20:04 | ED_ITS ---
HPI - Female Genitourinary General Chief complaint: Urogenital-Female Stated complaint: urinary issue Time Seen by Provider: 11/24/24 19:56 Source: patient Mode of arrival: ambulatory Limitations: no limitations History of Present Illness HPI Narrative: Patient presents today complaining of a 2 day history of dysuria, frequency, low back pain, and intermittent incontinence. She has tried some azo, Tylenol, and naproxen with little relief. History of frequent UTIs. Related Data Home Medications ?Medication ?Instructions ?Recorded ?Confirmed ?Last Taken ?Type estradiol 0.01% (0.1 mg/gram) 1 appful vaginal WEEKLY 11/24/24 11/24/24 Unknown History vaginal cream solifenacin 5 mg tablet 5 mg PO DAILY 11/24/24 11/24/24 Unknown History Allergies Allergy/AdvReac Type Severity Reaction Status Date / Time Penicillins Allergy Mild rash Verified 11/24/24 19:25 Sulfa (Sulfonamide Allergy Unknown RASH Verified 11/24/24 19:25 Antibiotics) Review of Systems Review of Systems: CONSTITUTIONAL: Denies body aches, fever, chills, or sweats. EYES: Denies visual changes, redness, or discharge. ENT: Denies rhinorrhea, congestion, sore throat, or otalgia. CARDIOVASCULAR: Denies chest pain, palpitations, or edema. RESPIRATORY: Denies cough or dyspnea. GASTROINTESTINAL: Denies abdominal pain, nausea, vomiting, or diarrhea. GENITOURINARY: + dysuria, frequency, incontinence SKIN: Denies rash, itching, or wounds. MUSCULOSKELETAL: Denies joint pain, or myalgia.+ low back pain NEUROLOGIC: Denies headache, numbness, tingling, or weakness. PSYCH: Denies depression or anxiety. [facility] Past Medical History Medical History Hypothyroid Hyperthyroidism Pre-diabetes Endometriosis Sleep apnea Bronchitis History of angina Surgical History Surgical History History of gastric bypass History of tonsillectomy Family History Family History Other Heart disease Hypertension Social History Social History Smoking packs per day: 0.2 Smoking cigarettes per day: 4.0 Smoking status: Current every day smoker Alcohol intake: never Lack of Transportation: No Lack of Food: Sometimes True Current Housing: I Have Housing Concerned About Future Housing: No Difficulty Paying Gas/Electric Bills: No Difficulty Paying for Meds: YES Currently Unemployed: No Education: High School Diploma/GED Difficulty w/ Childcare or Family Care: No Living arrangements: with family Gender identity (if verbalized by the patient): Female Comments At time of signature, I have reviewed and agree with nursing past medical, surgical, social and family history unless otherwise noted. Please see nursing chart for further information. There is no relevant family history pertinent to the presenting complaint Exam Narrative: GENERAL: Well-appearing, well-nourished, and in no acute distress. HEAD: Normocephalic, atraumatic. EYES: EOMI. No redness or drainage. Conjunctivae normal. ENT: Mucous membranes pink and moist. NECK: Normal AROM. CHEST: No respiratory distress. EXTREMITIES: Normal range of motion. SKIN: Warm, dry, no rash. Capillary refill normal. NEURO: No focal deficits. Alert and oriented x3. Gait steady. PSYCH: Normal affect. No signs of depression or anxiety. Course Course Level of Care: Express Care Visit Vital Signs Vital signs: Vital Signs Temperature 98.3 F 11/24/24 19:37 Pulse Rate 65 11/24/24 19:37 Respiratory Rate 16 11/24/24 19:37 Blood Pressure 153/86 H 11/24/24 19:37 Pulse Oximetry 99 11/24/24 19:37 Oxygen Delivery Room Air 11/24/24 19:37 Temperature 98.3 F 11/24/24 19:37 Pulse Rate 65 11/24/24 19:37 Respiratory Rate 16 11/24/24 19:37 Blood Pressure 153/86 H 11/24/24 19:37 Pulse Oximetry 99 11/24/24 19:37 Oxygen Delivery Room Air 11/24/24 19:37 Reviewed MDM - Female Genitourinary MDM Narrative Medical decision making narrative: Results of patient's urinalysis is skewed due to recent azo use. Urine culture pending. Prescription for Keflex sent to pharmacy. Anticipatory guidance given Differential Diagnosis Differential diagnosis: Likely urinary tract infection, vaginitis and cystitis Lab Data Attestation: I reviewed the patient's lab results. Labs: Lab Results 11/24/24 Range/Units 19:39 POC Urine Color Arvin POC Urine Clarity Clear POC Urine pH 5.5 POC Ur Specif Forreston 1.025 POC Urine Protein 2+ (Negative) POC Ur Glucose (UA) Trace (Negative) POC Urine Ketones Trace (Negative) POC Urine Blood 1+ (Negative) POC Urine Nitrite Positive (Negative) POC Urine Bilirubin Negative (Negative) POC Urine Urobilinogen 1.0 POC U Leukocyte Esteras 1+ (Negative) Critical Care Time Critical Care Time Critical Care Time: No Discharge Plan Discharge Clinical Impression: Acute UTI Patient Disposition: Home, Self-Care Condition: Stable Instructions: Antibiotic Form, Urinary Tract Infection in Women (DC) Additional Instructions: Please take the Keflex as prescribed until gone. Your urine will be sent to the hospital for urine culture, and you will be notified by telephone if your antibiotics need to be changed. If symptoms worsen to include nausea and vomiting, sweats or chills, fever, severe abdominal or back pain, please go to the ER immediately for further evaluation and treatment. Your blood pressure was elevated above 120/80 today at Urgent Care. This puts you above the threshold for follow up. Please schedule a followup visit with your personal physician as soon as possible, for further evaluation and treatment. Even blood pressure exceeding 120/80 may indicate pre-hypertension. Patient Language: Ukrainian Prescriptions: New cephalexin 500 mg capsule 500 mg PO Q6H 7 Days Qty: 28 0RF No Action estradiol 0.01 % (0.1 mg/gram) cream 1 appful VAGINAL WEEKLY solifenacin 5 mg tablet 5 mg PO DAILY cyanocobalamin (vitamin B-12) 1,000 mcg/mL solution 100 mcg subcut .every 2 weeks Qty: 10 2RF levothyroxine 100 mcg tablet 100 mcg PO DAILY Qty: 90 2RF Follow-up/Referrals: Atul Owen APRN [Primary Care Provider] - Time of Disposition: 20:06
== END 2024-11-24 20:12 | disposition home or self-care (01) ==
PROVIDERS: Emergency Provider Nurse Practitioner; PCP Nurse Practitioner
DX: N39.0 Urinary tract infection, site not specified (principal); F17.210 Nicotine dependence, cigarettes, uncomplicated; E03.9 Hypothyroidism, unspecified; E05.90 Thyrotoxicosis, unspecified without thyrotoxic crisis or storm; N80.9 Endometriosis, unspecified; I20.9 Angina pectoris, unspecified; R73.03 Prediabetes; Z98.84 Bariatric surgery status
CPT/HCPCS: 81003; 87086; 99213; G0463

== ENCOUNTER 2024-12-02 11:53 | Outpatient (CLI) | payer OTHER, SELFPAY ==
--- OUTSIDE RECORDS SUMMARY | 2024-12-02 11:57 | XMS_ITS | Clinical Summary ---
Author Organization [facility] Address [address] [place] [address] Care Team Providers Care Farmer Cash Grain Name Role Phone Stacie Serrano MD Primary Care Provider Allergies Active Allergy Reactions Criticality Noted Date Comments Ampicillin Rash Medium 06/16/2024 Penicillins Hives Medium 09/08/2018 Sulfa (Sulfonamide Antibiotics) Rash Reaction: RASH, Medications ibuprofen (ADVIL,MOTRIN) 600 mg tablet Take 1 tablet (600 mg total) by mouth every 6 (six) hours as needed for pain. 120 tablet 8 Active Additional Information Patient not taking.Reported on 06/16/2024 levothyroxine (SYNTHROID) 100 mcg tablet Take 1 tablet (100 mcg total) by mouth daily 2 Active benzonatate (TESSALON) 200 mg capsuleIndicati ons:Acute cough Take 1 capsule (200 mg total) by mouth 3 (three) times a day as needed for cough keep tessalon out of reach of children, especially children under the age of 10, due to possible serious risk such as if ingested by children under the age of 10. 30 capsule 4 Active cefdinir (OMNICEF) 300 mg capsule Take 1 capsule (300 mg total) by mouth 2 (two) times a day 14 capsule 4 Active estradioL (ESTRACE) 0.01 % (0.1 mg/gram) vaginal creamIndication s:Atrophic Vaginitis associated with Menopause Apply 1 gram 2-3 nights per week 42.5 g 5 4 Active solifenacin (VESIcare) 5 mg tablet Take 1 tablet (5 mg total) by mouth daily 30 tablet 3 4 Active Active Problems No known active problems Surgical History Surgery Date Site/Laterality Comments BARIATRIC SURGERY Gastrectomy Sleeve - (Added by TW Conv) Medical History Medical History Date Comments Anemia History of anemi a - (Added by TW Conv) Hypothyroid Thyroid trouble - (Added by TW Conv) Family History Medical History Relation Name Comments Hypertension Father Family history of hypertension - (Added by TW Conv) Hypertension Mother Family history of hypertension - (Added by TW Conv) Hypertension Other Family history of hypertension - (Added by TW Conv) Relation Name Status Comments Father Mother Other Social History Tobacco Use Types Packs/Day Years Used Date Smoking Tobacco: Every Day Cigarettes Smokeless Tobacco: Never Tobacco Cessation:Ready to Q uit: Not Asked; Counseling Given: Not Answered Personal Safety Answer Date Recorded Have you ever been in or are you currently in a harmful physical or emotional relationship or is someone making you feel afraid or unsafe? Denies 07/02/2024 Comments No Sex and Gender Information Value Date Recorded Sex Assigned at Not on file Legal Sex Female 11:24 AM FRONT END ENGINEER Gender Identity Not on file Sexual Orientation Not on file Obstetrics History Last Filed Vital Signs Vital Sign Reading Time Taken Comments Blood Pressure 136/76 07/03/2024 12:30 AM CDT Pulse 73 07/03/2024 12:30 AM CDT Temperature 36.8 C (98.2 F) 07/02/2024 9:32 PM CDT Respiratory Rate 18 07/02/2024 11:55 PM CDT Oxygen Saturation 93% 07/03/2024 12:30 AM CDT Inhaled Oxygen Concentration - - Weight 88.7 kg (195 lb 8.8 oz) 07/02/2024 9:32 P M CDT Height 165.1 cm (5' 5 ) 06/16/2024 5:19 PM CDT Body Mass Index 32.54 06/16/2024 5:19 PM CDT Plan of Treatment Health Maintenance Due Date Last Done Comments Colon Cancer Screening-Colonoscopy 1966 Depression Screening 1966 DTaP/Tdap/Td Vaccine (1 - Tdap) 1977 Regular Well Visit/Exam 18-64 1984 Zoster Vaccine (1 of 2) 2016 Covid-19 Vaccine (3 - season) 06/27/202402/2021, 11/13/2020 Influenza Vaccine (#1) 2024 7, 10/27/2014, 06/27/2012 Breast Cancer Screening-Mammogram 10/13/2024 10/13/2023, 04/18/2022, 03/06/2016 Pneumococcal vaccine <65 (3 of 3 - PPSV23 or PCV20) 2031 11/03/2014, 10/27/2014 Hepatitis B Screening Completed 04/26/2022 Hepatitis C Screening Completed 04/26/2022 Procedures Procedure Name Priority Date/Time Associated Diagnosis Comments SCREENING MAMMOGRAM BILATERAL W BALIWNDER Schedule Routine, Read Routine (OP Routine) 10/13/2023 1:00 PM FRONT END ENGINEER Screening mammogram, encounter for HEPATITIS C ANTIBODY Routine 04/26/2022 12:25 PM CDT Lichen planus, unspecified from Last 3 Months or Most Recently Relevant to Health Maintenance Results * Screening Mammogram Bilateral W Balwinder (10/13/2023 1:00 PM FRONT END ENGINEER) Anatomical Region Laterality Modality Breast Bilateral Mammography Narrative 10/14/2023 12:50 PM FRONT END ENGINEER Mammogram Technique: Bilateral Digital Breast Tomosynthesis, Bilateral C-view 2D Screening mammogram. Views obtained: bilateral craniocaudal and bilateral mediolateral oblique. Computer Aided Detection was performed. Mammogram Findings: The present examination has been compared to prior imaging studies performed at [facility] on 03/06/2016, and at [facility] on 04/18/2022. There are scattered areas of fibroglandular density. There is no suspicious abnormality in either breast. There are no significant changes from the prior study. Impression: Finding is benign. Annual screening mammography is recommended. OVERALL FINAL ASSESSMENT: BI-RADS CATEGORY 2: Benign. Procedure Note Shaylee Leon MD - 10/14/2023 Mammogram Technique: Bilateral Digital Breast Tomosynthesis, Bilateral C-view 2D Screening mammogram. Views obtained: bilateral craniocaudal and bilateral mediolateral oblique. Computer Aided Detection was performed. Mammogram Findings: The present examination has been compared to prior imaging studies performed at [facility] on 03/06/2016, and at [facility] on 04/18/2022. There are scattered areas of fibroglandular density. There is no suspicious abnormality in either breast. There are no significant changes from the prior study. Impression: Finding is benign. Annual screening mammography is recommended. OVERALL FINAL ASSESSMENT: BI-RADS CATEGORY 2: Benign. Self Screening Mammogram IMG MAMMO PROCEDURES Fi nal Result * Hepatitis C antibody (04/26/2022 12:25 PM CDT) Hep C Ab Nonreactive Nonreactive [facility] Comment:Antibodies to HCV no t detected. Does NOT exclude the possibility of recent exposure to HCV. Blood 04/26/2022 12:2 5 PM CDT 04/26/2022 1:39 PM CDT Travis Oleary MD PhD LAB MICROBIOLOGY - GENERAL ORDERABLES Final Result [facility] Department [place] [address] from Last 3 Months or Most Recently Relevant to Health Maintenance Insurance [employer] Address: [address] [place] [address] [employer] Address: [address] [place] [address] [employer] Address: [address] [place] [address] Care Teams Farmer Cash Grain Relationship Specialty Start Date End Date Tepe, Stacie Marybeth, MD PCP - General Obstetrics and Gynecology 10/13/23
--- OUTSIDE RECORDS SUMMARY | 2024-12-02 11:57 | XMS_ITS | Referral Summary ---
Author Organization [facility] Address [address] [place] [address] Care Team Providers Care Color Artist Name Role Phone Jeff Holbrook MD Primary Care Provider [phone] Source Comments [facility],non-owned Affiliates and Associated Physician Practices is amultiple site organization consisting of ambulatory clinics and hospital sitesin [place], [place], [place] and [place]. This disclosure is being madepursuant to the Care Everywhere program and may not contain all information available regarding this patient. Last updated 18.[facility] Allergies Active Allergy Reactions Criticality Noted Date Comments Penicillins 07/18/2015 Sulfa Drugs 07/18/2015 Medications Be aware that medications may not be up to date on this document. Always verify current medications with the patient. No known medications Social History Tobacco Use Types Packs/Day Years Used Date Smoking Tobacco: Never Assessed Sex and Gender Information Value Date Recorded Sex Assigned at Female 10/06/2022 7:58 AM SAW STRAIGHTENER Gender Identity Female 10/06/2022 7:58 AM SAW STRAIGHTENER Sexual Orientation Straight 10/06/2022 7: 58 AM SAW STRAIGHTENER Last Filed Vital Signs Vital Sign Reading Time Taken Comments Blood Pressure 120/70 07/18/2015 7:59 PM CDT Pulse 70 07/18/2015 7:59 PM CDT Temperature 36.4 C (97.6 F) 07/18/2015 7:59 PM CDT Respiratory Rate 16 07/18/2015 7:59 PM CDT Oxygen Saturation 100% 07/18/2015 7:59 PM CDT Inhaled Oxygen Concentration - - Weight 127 kg (280 lb) 07/18/2015 11:57 AM CDT Height 167.6 cm (5' 6 ) 07/18/2015 11:57 AM CDT Body Mass Index 45.19 07/18/2015 11:57 AM CDT Plan of Treatment Not on file Care Teams Color Artist Relationship Specialty Start Date End Date Jeff Holbrook MD [address] [place] [address] PCP - General Internal Medicine 07/18/15
--- OUTSIDE RECORDS SUMMARY | 2024-12-02 11:57 | XMS_ITS | Clinical Summary ---
Author Organization [facility] Address [address] [place] [address] Care Team Providers Care Integrated Specialist Name Role Phone Jeff Holbrook MD Primary Care Provider + Allergies Active Allergy Reactions Criticality Noted Date Comments Penicillins Rash Low 07/18/2015 Sulfa (Sulfonamide Antibiotics) Rash Low 06/28 Medications levothyroxine 112 mcg tablet Take 112 mcg by mouth daily corporate job titles. Active traMADol (ULTRAM) 50 mg tablet Take 100 mg by mouth every 6 hours as needed for Pain. Active cyanocobalamin, vitamin B-12, 1,000 mcg/mL Kit 1,000 mcg by Injection route every 30 days. Active potassium chloride (KLOR-CON) 10 mEq Extended Release tablet Take 10 mEq by mouth daily with breakfast. Active ferrous sulfate 325 mg (65 mg iron) tablet Take 325 mg by mouth 2 times daily. Active cholecalciferol , vitamin D3, 1,000 unit Take 1,000 Units by mouth daily. Active calcium carbonate (CALTRATE) 600 mg (1,500 mg) Tablet Take 600 mg by mouth daily. Active multivitamin (DAILY-KRYSTINA) tablet Take 1 Tablet by mouth daily. Active gabapentin (NEURONTIN) 300 mg capsule Take 1 Capsule (300 mg) by mouth 2 times daily. 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 Family History Medical History Relation Name Comments Hypertension Mother Other Mother Relation Name Status Comments Mother Alive Social History Tobacco Use Types Packs/Day Years Used Date Smoking Tobacco: Former Cigarettes 0.5 10 2 000 - 2010 Tobacco Cessation:Counseling Given: No Alcohol Use Standard Drinks/Week Comments No 0 (1 standard drink = 0.6 oz pur e alcohol) Comments No Sex and Gender Information Value Date Recorded Sex Assigned at Not on file Legal Sex Female 2:40 PM MUSIC EDUCATION DIRECTOR Gender Identity Not on file Sexual Orientation Not on file Last Filed Vital Signs Vital Sign Reading Time Taken Comments Blood Pressure 103/70 12/22/2019 9:27 AM MUSIC EDUCATION DIRECTOR Pulse 62 12/22/2019 9:27 AM MUSIC EDUCATION DIRECTOR Temperature 36.7 C (98 F) 12/22/2019 9:27 AM MUSIC EDUCATION DIRECTOR Respiratory Rate 18 02/05/2018 9:30 AM CDT Oxygen Saturation 98% 12/22/2019 9:27 AM MUSIC EDUCATION DIRECTOR Inhaled Oxygen Concentration - - Weight 70.3 kg (154 lb 14.4 oz) 12/22/2019 9:27 AM MUSIC EDUCATION DIRECTOR Height 167.6 cm (5' 6 ) 12/22/2019 9:27 AM MUSIC EDUCATION DIRECTOR Body Mass Index 25 12/22/2019 9:27 AM MUSIC EDUCATION DIRECTOR Plan of Treatment Health Maintenance Due Date Last Done Comments DTAP/TDAP/TD VACCINES (1 - Tdap) 1985 HEPATITIS B VACCINES (1 of 3 - 19+ 3-dose series) 1985 CERVICAL CANCER SCREENING 1996 BREAST CANCER SCREENING 2006 COLORECTAL SCREENING 2011 Colorectal Cancer Screening 2011 FIT-DNA Q 3 years 2011 FIT/FOBT Q 1 year 2011 Flex Sig/CT Colonography Q 5 years 2011 ZOSTER VACCINE (1 of 2) 2016 INFLUENZA VACCINE (#1) 2024 PNEUMOCOCCAL VACCINE 0-64 YEARS Aged Out No longer eligible based on patient's age to complete this topic Insurance [employer] PPO Care Teams Integrated Specialist Relationship Specialty Start Date End Date Jeff Holbrook MD [address] [place] [id number] PCP - General Internal Medicine 12/27/16
--- OUTSIDE RECORDS SUMMARY | 2024-12-02 11:57 | XMS_ITS | Clinical Summary ---
Author Organization [facility] Address [address] [place] [address] Care Team Providers Care Managing Consultant Name Role Phone Jeff Holbrook MD Primary Care Provider [phone] Source Comments [facility],non-owned Affiliates and Associated Physician Practices is amultiple site organization consisting of ambulatory clinics and hospital sitesin [place], [place], [place] and [place]. This disclosure is being madepursuant to the Care Everywhere program and may not contain all information available regarding this patient. Last updated 18.[facility] Allergies Active Allergy Reactions Criticality Noted Date [...] Sex Assigned at Female 10/06/2022 7:58 AM COLD MILL OPERATOR Gender Identity Female 10/06/2022 7:58 AM COLD MILL OPERATOR Sexual Orientation Straight 10/06/2022 7: 58 AM COLD MILL OPERATOR Last Filed Vital Signs Vital Sign Reading [...] 07/18/2015 11:57 AM CDT Plan of Treatment Health Maintenance Due Date Last Done Comments COLOGUARD (AGES 45-75) - COL ON CA SCREENING 1966 COLON MONITORING 1966 COLONOSCOPY - COLON CA SCREENING 1966 CT COLONOGRAPHY - COLON CA SCREENING 1966 Colorectal Cancer Screening 1966 FIT - COLON CA SCREENING 1966 FLEX SIG - COLON CA SCREENING 1966 LIPID TESTING 1966 MAMMOGRAM 1966 PAP SMEAR 1966 HIV SCREENING 1981 HEPATITIS C SCREENING 05/22/1984 DTAP/TDAP/TD VACCINES (1 - Tdap) 1985 HEPATITIS B VACCINE (1 of 3 - 19+ 3-dose series) 1985 PNEUMOCOCCAL VACCINE 50+ (1 of 1 - PCV) 2016 ZOSTER VACCINE (1 of 2) 2016 COVID-19 VACCINE (1 - 2023-2 5 season) 2024 INFLUENZA VACCINE (#1) 2024 DEPRESSION SCREENING 10/27/2024 HIB VACCINE Aged Out No longer eligi ble based on patient's age to complete this topic HPV VACCINE Aged Out No longer eligi ble based on patient's age to complete this topic MENINGOCOCCAL (Group B) VACCINE Aged Out No longer eligible based on patient's age to complete this topic MENINGOCOCCAL VACCINE Aged Out No qing kailee eligible based on patient's age to complete this topic Care Teams Managing Consultant Relationship Specialty Start Date End Date Jeff Holbrook MD [address] [place] [address] PCP - General Internal Medicine 07/18/15
--- OUTSIDE RECORDS SUMMARY | 2024-12-02 11:57 | XMS_ITS | Referral Summary ---
Author Organization [facility] Address [address] [place] [address] Care Team Providers Care Grinder Set Up Operator Surface Name Role Phone Stacie Serrano MD Primary [...] Active Active Problems No known active problems Social History Tobacco Use Types Packs/Day Years [...] on file Legal Sex Female 11:24 AM BOOKSTORE MANAGER Gender Identity Not on file Sexual Orientation [...] 06/16/2024 5:19 PM CDT Plan of Treatment Not on file Procedures Procedure Name Priority Date/Time Associated Diagnosis Comments SCREENING MAMMOGRAM BILATERAL W BALWINDER Schedule Routine, Read Routine (OP Routine) 10/13/2023 1:00 PM BOOKSTORE MANAGER Screening mammogram, encounter for HEPATITIS C ANTIBODY Routine 04/26/2022 12:25 PM CDT Lichen planus, unspecified from Last 3 Months or Most Recently Relevant to Health Maintenance Results * Screening Mammogram Bilateral W Balwinder (10/13/2023 1:00 PM BOOKSTORE MANAGER) Anatomical Region Laterality Modality Breast Bilateral Mammography Narrative 10/14/2023 12:50 PM BOOKSTORE MANAGER Mammogram Technique: Bilateral Digital Breast Tomosynthesis, Bilateral C-view 2D Screening mammogram. Views obtained: bilateral craniocaudal and bilateral mediolateral oblique. Computer Aided Detection was performed. Mammogram Findings: The present examination has been compared to prior imaging studies performed at [facility] on 03/06/2016, and at [facility] on 04/18/2022. There are scattered areas of [...] compared to prior imaging studies performed at [facility] on 03/06/2016, and at [facility] on 04/18/2022. There are scattered areas of fibroglandular density. There is no suspicious abnormality in either breast. There are no significant changes from the prior study. Impression: Finding is benign. Annual screening mammography is recommended. OVERALL FINAL ASSESSMENT: BI-RADS CATEGORY 2: Benign. us Self Screening Mammogram IMG MAMMO PROCEDURES Fi nal Result * Hepatitis C antibody (04/26/2022 12:25 PM CDT) Hep C Ab Nonreactive Nonreactive KEIKO BAIRES Comment:Antibodies to HCV no t detected. Does NOT exclude the possibility of recent exposure to HCV. Blood 04/26/2022 12:2 5 PM CDT 04/26/2022 1:39 PM CDT Travis Oleary MD PhD LAB MICROBIOLOGY - GENERAL ORDERABLES Final Result [facility] Department [place] [address] from Last 3 Months or Most Recently Relevant to Health Maintenance Insurance [facility] [employer] Address: [facility] [id number] [place] [id number] [facility] [employer] Address: [facility] [id number] [place] [address] [employer] Address: [facility] [id number] [place] [address] Care Teams Grinder Set Up Operator Surface Relationship Specialty Start Date End Date Stacie Serrano MD PCP - General Obstetrics and Gynecology 10/13/23
--- OUTSIDE RECORDS SUMMARY | 2024-12-02 11:57 | XMS_ITS | Patient Health Summary ---
Author Organization [facility] Address [address] [place] [address] Care Team Providers Care Office Cashier Name Role Phone Jeff Holbrook MD Primary Care Provider [phone] Note from [facility],non-owned Affiliates and Associated Physician Practices is amultiple site organization consisting of ambulatory clinics and hospital sitesin [place], [place], [place] and [place]. This disclosure is being madepursuant to the Care Everywhere program and may not contain all information available regarding this patient. Last updated 18.[facility] Allergies * Penicillins * Sulfa Drugs Medications Be aware that medications may not be up to date on this document. Always verify current medications with the patient. No known medications Social History Tobacco Use Types Packs/Day Years Used Date Smoking Tobacco: Never Assessed Sex and Gender Information Value Date Recorded Sex Assigned at Female 10/06/2022 7:58 AM PSYCHIATRIC TECHNICIAN ASSISTANT Gender Identity Female 10/06/2022 7:58 AM PSYCHIATRIC TECHNICIAN ASSISTANT Sexual Orientation Straight 10/06/2022 7: 58 AM PSYCHIATRIC TECHNICIAN ASSISTANT Last Filed Vital Signs Vital Sign Reading [...] Mass Index 45.19 07/18/2015 11:57 AM CDT Procedures * TROPONIN I(Performed 07/18/2015) * TYPE + SCREEN PANEL(Performed 07/18/2015) * URINE MICROSCOPIC ONLY REFLEX TO CULTURE(Performed 07/18/2015) * LACTIC ACID BLOOD(Performed 07/18/2015) * MAGNESIUM BLOOD(Performed 07/18/2015) * URINALYSIS REFLEX MICROSCOPIC REFLEX CULTURE(Performed 07/18/2015) * TROPONIN I(Performed 07/18/2015) * COMPREHENSIVE METABOLIC PANEL(Performed 07/18/2015) * CULTURE URINE(Performed 07/18/2015) * CBC W AUTO DIFFERENTIAL(Performed 07/18/2015) * B-TYPE NATRIURETIC PEPTIDE(Performed 07/18/2015) * EKG 12-LEAD(Performed 07/18/2015) Performed for Dizziness * EKG 12-LEAD(Performed 07/18/2015) Performed for Dizziness * XR CHEST 1VW PORTABLE(Performed 07/18/2015) Performed for Dizziness Results * TROPONIN I (07/18/2015 6:09 PM CDT) Only the most recent of2 resultswithin the time period is included. Troponin I <0.015 0.000 - 0.049 ng/mL 07/18/2015 6:36 PM CDT [facility] Blood BLOOD SPECIMEN / Unknown 07/18/2015 6:09 PM CDT 07/18/2015 6:19 PM CDT Narrative [facility] - 07/18/2015 6:36 PM CDT Note: Diagnosis of myocardial infarction requires symptoms of ischemia or EKG changes of ischemia and TNI >99th of normal (0.05 ng/mL). Troponin should be drawn on initial assessment and 3-6 hours later as clinically indicated. Any condition resulting in myocardial cell damage can increase cardiac troponin levels. In addition to myocardial infarction, these include but are not limited to CHF, arrhythmia, myocarditis, and non-cardiac related causes such as pulmonary embolism, renal failure and sepsis. Vikram Barksdale DO LAB - CHEMISTRY IRAM GOODE [facility] [address] [place] [address] * (ABNORMAL) URINALYSIS MICROSCOPIC ONLY W/REFLEX CULTURE (07/18/2015 4:34 PM CDT) Mucus UA 3+ 07/18/2015 5:28 PM CDT [facility] Hyaline Casts 2-5(A) 0 - 2 # /lpf 07/18/2015 5:28 PM CDT [facility] Urine URINE SPECIMEN OBTAINED BY CLEAN CATCH PROCEDURE / Unknown 07/18/2015 4:34 PM CDT 07/18/2015 4:42 PM CDT Vikram Barksdale DO LAB - URINALYSIS ORD ERABLES [facility] [address] [place] [address] * (ABNORMAL) URINALYSIS ROUTINE W/REFLEX TO CULTURE (07/18/2015 4:34 PM CDT) Color UA Betsy(A) Straw, Yellow, Dark Yellow 07/18/2015 5:02 PM CDT [facility] Clarity UA Cloudy 07/18/2015 5:02 PM CDT [facility] Specific [place] UA 1.024 1.005 - 1.030 07/18/2015 5:02 PM [facility] pH UA 6.5 5.0 - 8.0 pH 07/18/2015 5:02 PM T [facility] Protein UA 2+(A) Negative 07/18/2015 5:02 PM CDT [facility] Blood UA 3+(A) Negative 07/18/2015 5:02 PM CDT [facility] Leukocyte UA 2+(A) Negative 07/18/2015 5:02 PM CDT [facility] Nitrite UA Negative Negative 07/18/2015 5:02 PM CDT [facility] Glucose UA Negative Negative 07/18/2015 5:02 PM CDT [facility] Ketone UA 3+(A) Negative 07/18/2015 5:02 PM CDT [facility] Bilirubin UA 2+(A) Negative 07/18/2015 5:02 PM CDT [facility] Urobilinogen UA 1.0 0.1 - 1.0 EU/dL 07/18/2015 5:02 PM T [facility] WBC UA Auto 50-100(A) 0-2, 2-5 # /hpf 07/18/2015 5:02 PM CDT [facility] RBC UA Auto 20-50(A) 0-2, 2-5 # /hpf 07/18/2015 5:02 PM CDT [facility] Epithelial Cell UA Auto 10-20(A) 0-2, 2-5 # /hpf 07/18/2015 5:02 PM CDT [facility] Bacteria UA Auto 1+(A) None seen 07/18/2015 5:02 PM CDT [facility] Hyaline Casts UA Auto Reflex to manual(A) 0 - 2 #/lpf 07/18/2015 5:02 PM CDT [facility] Reflex Status Culture to follow 07/18/2015 5:02 PM CDT [facility] Urine URINE SPECIMEN OBTAINED BY CLEAN CATCH PROCEDURE / Unknown 07/18/2015 4:34 PM CDT 07/18/2015 4:42 PM CDT Vikram Barksdale DO LAB - URINALYSIS ORD ERABLES Performing Organization Address [facility]/ZIP Co de Phone Number [facility] [address] [place] [address] * (ABNORMAL) CULTURE URINE (07/18/2015 4:34 PM CDT) Culture >100,000 CFU/mL Streptococcus agalactiae (Group B)(A) MAC[place]IO 07/20/2015 6:44 AM CDT [facility] Urine URINE SPECIMEN OBTAINED BY CLEAN CATCH PROCEDURE / Unknown 07/18/2015 4:34 PM CDT 07/18/2015 4:42 PM CDT Narrative [facility] - 07/20/2015 6:44 AM CDT Susceptibility testing of penicillin, other beta-lactam antibiotics, and vancomycin is not necessary for beta-hemolytic streptococci groups A,B,C and G because resistant strains have not been recognized. Vikram Barksdale DO LAB - MICROBIOLOGY O RDERABLES Performing Organization Address City/[facility]/ZIP Co de Phone Number [facility] [address] [place] [address] [phone] * TYPE + SCREEN PANEL (07/18/2015 4:34 PM CDT) ABO O 07/18/2015 5:19 PM CDT [facility] Rh Type Positive 07/18/2015 5:19 PM CDT [facility] Comment:History check perfor med. Retype required. Antibody Screen Negative 07/18/2015 5:19 PM CDT [facility] Miscellaneous samples (specimen) BLOOD SPECIMEN / Unknown 07/18/2015 4:34 PM CDT 07/18/2015 4:42 PM CDT Vikram Barksdale DO LAB - BLOOD BANK ORD ERABLES [facility] [address] * (ABNORMAL) COMPREHENSIVE METABOLIC PANEL (07/18/2015 4:34 PM CDT) Glucose 89 74 - 106 mg/dL 07/18/2015 5:01 PM CDT [facility] Sodium 138 136 - 145 mmol/L 07/18/2015 5:01 PM CDT [facility] Potassium 3.6 3.5 - 5.1 mmol/L 07/18/2015 5:01 PM T [facility] Chloride 105 98 - 107 mmol/L 07/18/2015 5:01 PM CDT [facility] CO2 28 22 - 31 mmol/L 07/18/2015 5:01 PM CDT [facility] Calcium 9.8 8.5 - 10.1 mg/dL 07/18/2015 5:01 PM [facility] Anion Gap 5 5 - 20 mmol/L 07/18/2015 5:01 PM T [facility] BUN 10 7 - 21 mg/dL 07/18/2015 5:01 PM CDT [facility] Creatinine 0.48(L) 0.50 - 1.30 mg/dL 07/18/2015 5:01 PM [facility] Alkaline Phosphatase 101 38 - 126 U/L 07/18/2015 5:01 PM CDT [facility] ALT 27 12 - 78 U/L 07/18/2015 5:01 PM CDT [facility] AST 12 5 - 40 U/L 07/18/2015 5:01 PM CDT [facility] Protein Total 7.9 6.4 - 8.2 gm/dL 07/18/2015 5:01 PM CDT [facility] Albumin 3.8 3.4 - 5.0 gm/dL 07/18/2015 5:01 PM CDT [facility] Bilirubin Total 0.6 0.2 - 1.0 mg/dL 07/18/2015 5:01 PM CDT [facility] eGFR by MDRD >60 >60 mL/min/1.7 3m2 07/18/2015 5:01 PM CDT [facility] eGFR by MDRD >60 >60 mL/min/1.7 3m2 07/18/2015 5:01 PM CDT [facility] Blood BLOOD SPECIMEN / Unknown 07/18/2015 4:34 PM CDT 07/18/2015 4:42 PM CDT Vikram Barksdale DO LAB - CHEMISTRY IRAM GOODE [facility] [address] [place], [place] [id number] * MAGNESIUM BLOOD (07/18/2015 4:34 PM CDT) Magnesium 2.3 1.6 - 2.6 mg/dL 07/18/2015 5:03 PM CDT [facility] Blood BLOOD SPECIMEN / Unknown 07/18/2015 4:34 PM CDT 07/18/2015 4:42 PM CDT Vikram Barksdale DO LAB - CHEMISTRY IRAM GOODE [facility] [address] [place] [address] * LACTIC ACID BLOOD (07/18/2015 4:34 PM CDT) Lactic Acid 1.2 0.7 - 2.1 mmol/L 07/18/2015 5:03 PM CDT [facility] Blood BLOOD SPECIMEN / Unknown 07/18/2015 4:34 PM CDT 07/18/2015 4:41 PM CDT Vikram Barksdale DO LAB - CHEMISTRY IRAM GOODE [facility] [address] [place] [id number] * (ABNORMAL) CBC W AUTO DIFFERENTIAL (07/18/2015 4:33 PM CDT) WBC 10.1 4.4 - 10.7 x10^9/L 07/18/2015 4:47 PM CDT [facility] WBC Corrected x10^9/L 07/18/2015 4:47 PM CDT [facility] RBC 4.69 3.80 - 5.20 x10^12/L 07/18/2015 4:47 PM CDT [facility] Hemoglobin 14.0 12.0 - 15.6 gm/dL 07/18/2015 4:47 PM CDT [facility] Hematocrit 41.4 35.9 - 45.5 % 07/18/2015 4:47 PM CDT [facility] MCV 88.3 80.7 - 98.3 fl 07/18/2015 4:47 PM CDT [facility] MCH 29.9 26.7 - 34.0 pg 07/18/2015 4:47 PM CDT [facility] MCHC 33.8 30.8 - 35.9 gm/dL 07/18/2015 4:47 PM CDT [facility] Platelet Count 223 153 - 416 x10^9/L 07/18/2015 4:47 PM CDT [facility] RDW-CV 12.6 12.1 - 14.9 % 07/18/2015 4:47 PM CDT [facility] MPV 9.8 9.4 - 12.9 fl 07/18/2015 4:47 PM CDT [facility] Neutrophils % 75.0(H) 44.0 - 73.0 % 07/18/2015 4:47 PM CDT [facility] Lymphocytes % 17.7(L) 20.0 - 43.0 % 07/18/2015 4:47 PM CDT [facility] Monocytes % 5.1 5.0 - 13.0 % 07/18/2015 4:47 PM CDT [facility] Eosinophils % 1.8 0.0 - 6.0 % 07/18/2015 4:47 PM CDT [facility] Basophils % 0.2 0.0 - 2.0 % 07/18/2015 4:47 PM CDT [facility] Immature Granulocytes 0.2 0 - 1 % 07/18/2015 4:47 PM CDT [facility] Neutrophil Absolute 7.58(H) 2.01 - 7.14 x10^9/L 07/18/2015 4:47 PM CDT [facility] Lymphocytes Absolute 1.79 1.07 - 3.94 x10^9/L 07/18/2015 4:47 PM CDT [facility] Monocytes Absolute 0.52 0.26 - 1.07 x10^9/L 07/18/2015 4:47 PM CDT [facility] Eosinophils Absolute 0.18 0 - 0.47 x10^9/L 07/18/2015 4:47 PM CDT [facility] Basophils Absolute 0.02 0 - 0.08 x10^9/L 07/18/2015 4:47 PM CDT [facility] Immature Granulocytes Absolute 0.02 0.00 - 0.06 x10^9/L 07/18/2015 4:47 PM CDT [facility] Blood BLOOD SPECIMEN / Unknown 07/18/2015 4:33 PM CDT 07/18/2015 4:42 PM CDT Vikram Barksdale DO LAB - HEMATOLOGY ORD ERABLES [facility] [address] [place] [address] * B-TYPE NATRIURETIC PEPTIDE (07/18/2015 4:33 PM CDT) Pathologist [facility] BNP 6 0 - 100 pg/mL 07/18/2015 5:14 PM CDT [facility] Blood BLOOD SPECIMEN / Unknown 07/18/2015 4:33 PM CDT 07/18/2015 4:42 PM CDT Narrative [facility] - 07/18/2015 5:14 PM CDT A cutoff of 100 pg/ml has been demonstrated to provide the maximal combination of sensitivity, specificity, and negative predictive value for contributing to the diagnosis of congestive heart failure(CHF) only. A BNP value greater than or equal to 100 pg/ml is consistent with a diagnosis of CHF in the appropriate clinical setting. False positive results are more common in females greater than 75 years of age. Blood concentrations of natriuretic peptides may also be elevated in patients with myocardial infarction and in patients who are candidates for or are undergoing renal dialysis. Vikram Doll Shamir AVIL[facility] LAB - CHEMISTRY ORDScottie GOODE Performing Organization Address [facility] Co de Phone Number [facility] [address] [place] [address] * EKG 12-LEAD (07/18/2015 4:08 PM CDT) Only the most recent of2 resultswithin the time period is included. Ventricular Rate 72 BPM [facility] Atrial Rate 72 BPM [facility] P-R Interval 160 ms [facility] QRS Duration ms 74 ms [facility] Q-T Interval ms 426 ms [facility] QTC Calculation (Bezet) 466 ms [facility] Calculated P Pierson 60 degrees [facility] Calculated R Pierson 28 degrees [facility] Calculated T Pierson 33 degrees [facility] Interpretation EKG NORMAL SINUS RHYTHM NORMAL ECG Confirmed by Florencia Spann ([id number]) on 08/05/2015 8:47:46 AM [facility] 07/18/2015 4:08 PM CDT 08/05/2015 8:47 AM CDT Vikram Barksdale DO ECG ORDERABLES Performing Organization Address [facility] Phone Number [facility] * XR CHEST 1VW PORTABLE (07/18/2015 3:46 PM CDT) Anatomical Region Laterality Modality Chest Radiographic Pura ging 07/18/2015 3:57 PM CDT Impressions 07/18/2015 3:57 PM CDT Clear lungs. Narrative 07/18/2015 3:57 PM CDT Examination: Chest single view History: Dizziness Findings: A single portable view of the chest was performed without prior comparison. There is no pneumonic consolidation, pleural effusion, or pneumothorax. Heart size appears normal. Procedure Note Zhen Riley MD - 07/18/2015 Examination: Chest single view History: Dizziness Findings: A single portable view of the chest was performed without prior comparison. There is no pneumonic consolidation, pleural effusion, or pneumothorax. Heart size appears normal. IMPRESSION Clear lungs. Vikram Barksdale DO DIAGNOSTIC IMAGING O [facility] Care Teams Office Cashier Relationship Specialty [place] [address] [place] [phone] PCP - General Internal Medicine 07/18/15
--- OUTSIDE RECORDS SUMMARY | 2024-12-02 11:58 | XMS_ITS | Continuity of Care Document ---
Author Organization [facility] Address [address] [place] [address] Phone Care Team Providers Care Asbestos Abatement Worker Name Role Phone Stacie Serrano MD Unavailable Unavailable Allergies, Adverse Reactions, Alerts Substance Reaction Status Criticality Sulfa (Sulfonamide Antibiotics) Hives(mild) Active No Information ampicillin Rash Active No Information Medications Medication Instructions Dosage Effective Dates (start - stop) Status Comments clindamycin 1 % topical gel APPLY A THIN LAYER TO AFFECTED AREA(S) TOPICALLY TWO TIMES A DAY - Active for hidratinitis Synthroid 100 mcg tablet take 1 tablet by oral route every day 100 MCG - Active may adjust based on labs Procedures Procedure Date Voided Encounter PERIODIC COMPREHENSIVE PREVENTIVE MED RE E/M; ESTABLISHED PATIENT; OFFICE/OUTPATIENT VISIT, EST Alcohol and/or drug screening 3 URINE TEST, BY VISUAL COLOR CO MPARISON METHODS Urinalysis, Auto, w/o Scope HEMOGLOBIN; GLYCOSYLATED (A1C) 23 SARSCOV2 VAC 30MCG TRSSUC IM ADMIN SARSCOV2 VACC 1 DOSE Alcohol and/or drug screening 2 Urinalysis, Auto, w/o Scope PERIODIC COMPREHENSIVE PREVENTIVE MED RE E/M; ESTABLISHED PATIENT; PERIODIC COMPREHENSIVE PREVENTIVE MED RE E/M; ESTABLISHED PATIENT; Alcohol and/or drug screening 1 Urinalysis, Auto, w/o Scope HEMOGLOBIN; GLYCOSYLATED (A1C) 21 OFFICE/OUTPATIENT VISIT, EST OFFICE/OUTPATIENT VISIT, EST Urinalysis, Auto, w/o Scope OFFICE OUTPT EST 25 MIN Alcohol and/or drug screening 7 Urinalysis, Auto, w/o Scope URINE TEST, BY VISUAL COLOR CO MPARISON METHODS OFFICE/OUTPATIENT VISIT, EST Alcohol and/or drug screening 7 Urinalysis, Auto, w/o Scope URINE TEST, BY VISUAL COLOR CO MPARISON METHODS COMPRE METAB PANEL BLOOD COUNT; COMPLETE (CBC), AUTOMATED (HGB, HCT, RBC, WBC AND PLATELET COUNT) THYROID STIMULATING HORMONE (TSH) THYROXINE; FREE OFFICE/OUTPATIENT VISIT, EST Alcohol and/or drug screening 7 HOSPITAL DISCHARGE DAY MANAGEMENT; 30 PR NUTES OR LESS LAPAROSCOPY, SURGICAL, WITH TOTAL HYSTER ECTOMY, FOR UTERUS 250 G OR LESS; OFFICE/OUTPATIENT VISIT, EST Urinalysis, Auto, w/o Scope URINE TEST, BY VISUAL COLOR CO MPARISON METHODS OFFICE/OUTPATIENT VISIT, EST Alcohol and/or drug screening 7 Urinalysis, Auto, w/o Scope URINE TEST, BY VISUAL COLOR CO MPARISON METHODS BLOOD COUNT; COMPLETE (CBC), AUTOMATED (HGB, HCT, RBC, WBC AND PLATELET COUNT) THYROID STIMULATING HORMONE (TSH) GONADOTROPIN; FOLLICLE STIMULATING HORMO NE (FSH) THYROXINE; FREE HEMOGLOBIN; GLYCOSYLATED (A1C) 17 PERIODIC COMPREHENSIVE PREVENTIVE MED RE E/M; ESTABLISHED PATIENT; 40-64 OFFICE/OUTPATIENT VISIT, EST Urinalysis, Auto, w/o Scope HIV-1 Antigen, W/HIV-1 & HIV-2 Antibody, Single Re IAAD EIA HEP B SURF AG HEPATITIS C ANTIBODY; BLOOD COUNT; COMPLETE (CBC), AUTOMATED (HGB, HCT, RBC, WBC AND PLATELET COUNT) Urinalysis, Auto, w/o Scope HYSTEROSCOPY, BIOPSY OFFICE/OUTPATIENT VISIT, EST Alcohol and/or drug screening 7 Urinalysis, Auto, w/o Scope URINE TEST, BY VISUAL COLOR CO MPARISON METHODS ENDOMETRIAL BX +-ENDOCRV BX W/O DILAT SP X OFFICE/OUTPATIENT VISIT, EST URINE TEST, BY VISUAL COLOR CO MPARISON METHODS Urinalysis, Auto, w/o Scope ENDOMETRIAL BX +-ENDOCRV BX W/O DILAT SP X URINE TEST, BY VISUAL COLOR CO MPARISON METHODS Urinalysis, Auto, w/o Scope COLLECTION OF VENOUS BLOOD BY VENIPUNCTU RE 1ST COMPRE PREV MED E/M NEW PT 40-64 Jan OFFICE/OUTPATIENT VISIT, EST Alcohol and/or drug screening 6 Urinalysis, Auto, w/o Scope URINE TEST, BY VISUAL COLOR CO MPARISON METHODS HEMOGLOBIN; GLYCOSYLATED (A1C) 16 COLLECTION OF CAPILLARY BLOOD SPECIMEN ( EG, FINGER, HEEL, EAR STICK) COLLECTION OF VENOUS BLOOD BY VENIPUNCTU RE HEPATITIS C ANTIBODY; THYROID STIMULATING HORMONE (TSH) GONADOTROPIN; FOLLICLE STIMULATING HORMO NE (FSH) HIV-1 Antigen, W/HIV-1 & HIV-2 Antibody, Single Re BLOOD COUNT; COMPLETE (CBC), AUTOMATED (HGB, HCT, RBC, WBC AND PLATELET COUNT) IAAD EIA HEP B SURF AG LIPID PANEL OFFICE/OUTPATIENT VISIT, EST COLLECTION OF VENOUS BLOOD BY VENIPUNCTU RE CULTURE, PRESUMPTIVE, PATHOGENIC ORGANIS MS, SCREENING ONLY; CULTURE, CHLAMYDIA, ANY SOURCE 10 CYTP C/V AUTO THIN LYR PREPJ SCR SYS PHY S ENDOMETRIAL BX +-ENDOCRV BX W/O DILAT SP X PERIODIC COMPREHENSIVE PREVENTIVE MED RE E/M; ESTABLISHED PATIENT; 40-64 Dental bitewings two films Dental prophylaxis adult Topical fluor w/o prophy adult 10 Oral hygiene instruction Comprehensve oral evaluation COLLECTION OF VENOUS BLOOD BY VENIPUNCTU RE OFFICE OUTPT EST 25 MIN Advance Directives Directive Yes / No Effective Date File Name No Information Encounters Encounter Description Practice Location Reason(s) For Visit Diagnoses Date Provider Providers Copied on Encounter [facility], [address], [place], [place], [address] , tel:[phone] [facility] No Information - 5 Tepe Stacie. [address], [place], [place], [address], . tel:[phone] [facility], [address], [place], [place], [address] , tel: [phone] [facility] No Information 0 3 Tepe Stacie. [address], [place], [place], [address], . tel:[phone] [facility], [address], [place], [place], [address] , tel: [phone] [facility] No Information 3 Tepe Stacie. [address], [place], [place], [address], . tel:[phone] Referring Provider: Stacie Serrano, [address], [place], [address] . tel:[phone] PERIODIC COMPREHENSIVE PREVENTIVE MED REE/M; ESTABLISHED PATIENT; [facility], [address], [place], [place], [address] , tel:[phone] [facility] for annual exam (chief complaint) Body mass index (BMI) 30.0-30.9, adultMenopaus al and female climacteric statesBenign neoplasm of thyroid glandEncntr screen mammogram for malignant neoplasm of breastEncount er for screening colonoscopyAc quired absence of both cervix and uterusObesity , unspecifiedDi etary counseling and surveillanceE ncounter for immunizationE ncounter for general real estate agency licensee exam w/ abnormal findingHidrad enitis suppurativaIm munization not carried out because of patient refusalEncoun ter for screening for other disorderHemat uriaExcessive and frequent menstruation with irregular cycle 3 Maggie Quinones. [address], [place], [place], [address], . tel:[phone] Referring Provider: Stacie Serrano [address] [facility], [place], [address] . tel:[phone] PERIODIC COMPREHENSIVE PREVENTIVE MED REE/M; ESTABLISHED PATIENT; [facility], [address], [place], [place], [address] , tel: [phone] [facility] for [employer] (chief complaint) Encounter for gynecological examination (general) (routine) without abnormal findingsEncnt r screen mammogram for malignant neoplasm of breastEncount er for screening colonoscopyBo dy mass index (BMI) 28.0-28.9, adultEncounte r for STI screeningSymp tomatic menopausal stateOverweig htDietary counseling and surveillanceE ncounter for screening for other disorder 2 Maggie Quinones. [address], [place], [place], [address], . tel:[phone] Referring Provider: Stacie Serrano [address], [place], [address] . tel:[phone] PERIODIC COMPREHENSIVE PREVENTIVE MED REE/M; ESTABLISHED PATIENT; [facility], [address], [place], [place], [address] , [place] tel: [phone] [facility] wwe (chief complaint) Body mass index (BMI) 28.0-28.9, adultEncounte r for general real estate agency licensee exam w/o abnormal findingEncoun ter for STI screeningEnco unter for screening colonoscopyEn cntr screen mammogram for malignant neoplasm of breastHidrade nitis suppurativaOv erweightDieta ry counseling and surveillanceE ncounter for screening for diabetesEncou nter for screening for other disorder 1 Tepe Stacie. [address], [place], [place], [address], [place]. tel:[phone] OFFICE/OUTPATI ENT VISIT, EST [facility], [address], [place], [place], [address] , tel: [phone] [facility] for RUG SETTER VELVET FU (chief complaint) MastodyniaEnc ntr screen mammogram for malignant neoplasm of breast 1 Tepe Stacie. [address], [place], [place], [address], [place]. tel:[phone] Referring Provider: Stacie Serrano, [address], [place], [address] . tel:[phone] OFFICE/OUTPATI ENT VISIT, EST [facility], [address], [place], [place], [address] , tel: [phone] [facility] STD testing (chief complaint) Encounter for screening for infections with a predominantly sexual mode of transmission 8 No Information OFFICE OUTPT EST 25 MIN [facility], [address], [place], [place], [address] , tel: [phone] [facility] Results (chief complaint) Encntr for f/u exam aft trtmt for cond oth than malig neoplmMenopau enio and female climacteric statesEncount er for screening colonoscopyEn counter for screening for other disorderEncnt r for real estate agency licensee exam (general) (routine) w abnormal findings 7 Tepe Stacie. [address], [place], [place], [address], . tel:[phone] Referring Provider: Stacie Serrano, [address], [place], [address] . tel:[phone] OFFICE/OUTPATI ENT VISIT, EST [facility], [address], [place], [place], [address] , tel: [phone] [facility] F/U Post-op (chief complaint) Encounter for change or removal of surgical wound dressingEncou nter for screening for other disorderEncnt r for real estate agency licensee exam (general) (routine) w abnormal findings Teplonnie Quinones. [address], [place], [place], [address], . tel:[phone] Referring Provider: Stacie Serrano, [address], [place], [address] . tel:[phone] OFFICE/OUTPATI ENT VISIT, EST [facility], [address], [place], [place], [address] , tel:[phone] [facility] 2wk p.o. (chief complaint) Encntr for f/u exam aft trtmt for cond oth than malig neoplmCelluli tis, unspecified Teplonnie Quinones. [address], [place], [place], [address], . tel:[phone] Referring Provider: Stacie Serrano, [address], [place], [address] . tel:[phone] HOSPITAL DISCHARGE DAY MANAGEMENT; 30 MINUTES OR LESS [facility], [address], [place], [place], [address] , [place] tel: [phone] [facility] No Information Jun- Brittany-Callyrn Concepcion. [address], [place], [place], [address], . tel:[phone] [facility], [address], [place], [place], [address] , tel: [phone] [facility] No Information Maggie Quinones. [address], [place], [place], [address], . tel:[phone] OFFICE/OUTPATI ENT VISIT, EST [facility], [address], [place], [place], [address] , [place] tel:[phone] [facility] heavy bleeding (chief complaint) Abnormal uterine and vaginal bleeding, unspecifiedEx cessive and frequent menstruation with irregular cycle Tepe Stacie. [address], [place], [place], [address], [place]. tel:[phone] Referring Provider: Stacie Serrano, [address], [place], [address] . tel:[phone] OFFICE/OUTPATI ENT VISIT, EST [facility], [address], [place], [place], [address] , tel:[phone] [facility] Surgical Consult (chief complaint) Abnormal uterine and vaginal bleeding, unspecifiedEn cntr for real estate agency licensee exam (general) (routine) w abnormal findingsExces sive and frequent menstruation with irregular cycle Teplonnie Quinones. [address], [place], [place], [address], [place]. tel:[phone] Referring Provider: Stacie Serrano, [address], [place], [address] . tel:[phone] PERIODIC COMPREHENSIVE PREVENTIVE MED REE/M; ESTABLISHED PATIENT; 40-64 [facility], [address], [place], [place], [address] , tel:[phone] [facility] annual exam (chief complaint) Encounter for gynecological examination (general) (routine) without abnormal findingsEncou nter for screening for infections with a predominantly sexual mode of transmissionE ncounter for screening mammogram for malignant neoplasm of breastEncount er for screening for malignant neoplasm of colonExcessiv e and frequent menstruation with irregular cycleEncntr for real estate agency licensee exam (general) (routine) w abnormal findings 7 Jacob Don. [address], [place], [place], [address], [place]. tel:[phone] Referring Provider: Florencia James, [address], [place], [address] . tel:[phone] [facility], [address], [place], [place], [address] , [place] tel: [phone] [facility] Generalized abdominal pain 7 Tepe Stacie. [address], [place], [place], [address], [place]. tel:[phone] Referring Provider: Stacie Serrano, [address], [place], [address] . tel:[phone] [facility], [address], [place], [place], [address] , [place] tel: [phone] [facility] No Information 7 Tepe Stacie. [address], [place], [place], [address], [place]. tel:[phone] OFFICE/OUTPATI ENT VISIT, EST [facility], [address], [place], [place], [address] , [place] tel: [phone] [facility] Surgery Consult (chief complaint) Abnormal uterine and vaginal bleeding, unspecifiedLe iomyoma of uterus Tepe Stacie. [address], [place], [place], [address], [place]. tel:[phone] Referring Provider: Stacie Serrano, [address], [place], [address] . tel:[phone] OFFICE/OUTPATI ENT VISIT, EST [facility], [address], [place], [place], [address] , [place] tel: [phone] [facility] EMBX (chief complaint) Abnormal uterine and vaginal bleeding, unspecifiedUr inary tract infection, site not specifiedGene ralized abdominal pain 7 No Information [facility], [address], [place], [place], [address] , [place] tel: [phone] [facility] abnormal bleeding (chief complaint) Abnormal uterine and vaginal bleeding, unspecifiedDy suriaEncounte r for screening for infections with a predominantly sexual mode of transmissionL eiomyoma of uterus, unspecifiedAc onofre vaginitis 6 No Information [facility], [address], [place], [place], [address] , [place] tel: [phone] [facility] Mastodynia 6 Tepe Stacie. [address], [place], [place], [address], [place]. tel:[phone] 1ST COMPRE PREV MED E/M NEW PT [facility], [address], [place], [place], [address] , [place] tel: [phone] [facility] annual exam (chief complaint) Encntr screen mammogram for malignant neoplasm of breastIrregul ar bleedingEncou nter for family planning adviceEncount er for general real estate agency licensee exam w/ abnormal findingEncoun ter for STI screeningOver weightEncount er for screening for other disorder 6 Tepe Stacie. [address], [place], [place], [address], [place]. tel:[phone] Referring Provider: Satcie Serrano, [address], [place], [address] . tel:[phone] OFFICE/OUTPATI ENT VISIT, EST [facility], [address], [place], [place], [address] , [place] tel: [phone] [facility] lab results (chief complaint) Other disorders of menstruation and other abnormal bleeding from female genital tract Jan- 0 Tepe Stacie. [address], [place], [place], [address], [place]. tel:[phone] PERIODIC COMPREHENSIVE PREVENTIVE MED REE/M; ESTABLISHED PATIENT; [facility], [address], [place], [place], [address] , [place] tel: [phone] [facility] annual visit (chief complaint) Routine gynecological examinationOt her screening mammogramOthe r disorders of menstruation and other abnormal bleeding from female genital tractVaginiti s and vulvovaginiti s, unspecified Jan-11 01- 0 Tepe Stacie. [address], [place], [place], [address], [place]. [phone] [facility], [address], [place], [place], [address] , [place] tel: [phone] [facility] No Information 2-201 0 No Information OFFICE OUTPT EST 25 MIN [facility], [address], [place], [place], [address] , [place] tel: [phone] [facility] hypertension (chief complaint)ADDIS D (chief complaint) Benign essential hypertensionA bdominal pain, right upper quadrantUrgen cy of urinationAbno rmal weight gain 5201 0 No Information [facility], [address], [place], [place], [address] , [place] tel: [phone] Care Guidelines 1190 1 No Information Family History Family Member Type Diagnosis Age At Onset Problem (finding) No family history of ut erine cancer Mother Problem (finding) hypertension Problem (finding) No family history of Ov zoran cancer Problem (finding) No family history of Ca ncer, colon Problem (finding) No family history of Ca ncer, breast Immunizations Vaccine Date Status Comments 12+ Pfizer administered Source: [facility] unization Record Payers Payer name Insurance type Covered alliance party ID Kelli lugo(s) [facility] 2546 CI [id number] Social History Type Description Quantity Date Captured Comments Sex Female Smoking Status No Information Chief Complaint And Reason For Visit No Information Reason For Referral Reason For Referral No Information Plan Of Treatment Date Type Action Status Goal ALT. Due on due Goal AST. Due on due Goal Breast exam. Due on 023 due Goal AST. Due on due Goal Breast exam. Due on 022 due Goal Mammogram. Due on 8 due Goal Pap/HPV testing. Due on due Goal Influenza vaccine. Due on due Goal Colonoscopy. Due on due Goal Pap/HPV testing. Due on due Goal Colonoscopy. Due on due Goal Influenza vaccine. Due on due Goal AST. Due on due Goal Breast exam. Due on due Goal Mammogram. Due on due Goal Prescribed diet education co mpleted Goal AST. Due on due Goal Breast exam. Due on due Goal Mammogram. Due on due Goal Pap/HPV testing. Due on due Goal Influenza vaccine. Due on due Goal Colonoscopy. Due on due Goal Mammogram. Due on due Goal Pap/HPV testing. Due on due Goal AST. Due on due Goal Breast exam. Due on due Goal Colonoscopy. Due on due Goal Influenza vaccine. Due on due Goal ALT. Due on due Goal Urinalysis. Due on due Goal AST. Due on due Goal PAP. Due on due Goal Lipid Panel. Due on due Goal Breast exam. Due on due Goal BMP fasting. Due on due Goal AST. Due on due Goal Urinalysis. Due on due Goal Lipid Panel. Due on due Goal ALT. Due on due Goal PAP. Due on due Goal BMP fasting. Due on due Goal Breast exam. Due on due Goal Lipid Panel. Due on due Goal Urinalysis. Due on due Goal AST. Due on due Goal BMP fasting. Due on due Goal PAP. Due on due Goal ALT. Due on due Goal Breast exam. Due on due Goal ALT. Due on due Goal BMP fasting. Due on due Goal Urinalysis. Due on due Goal PAP. Due on due Goal Lipid Panel. Due on due Goal AST. Due on due Goal Breast exam. Due on due Goal Breast exam. Due on due Goal ALT. Due on due Goal Urinalysis. Due on due Goal AST. Due on due Goal Lipid Panel. Due on due Goal BMP fasting. Due on due Goal PAP. Due on due Goal Lipid Panel. Due on due Goal PAP. Due on due Goal BMP fasting. Due on due Goal AST. Due on due Goal Breast exam. Due on due Goal Urinalysis. Due on due Goal ALT. Due on due Goal Lipid Panel. Due on due Goal BMP fasting. Due on due Goal AST. Due on due Goal Breast exam. Due on due Goal PAP. Due on due Goal ALT. Due on due Goal Urinalysis. Due on due Goal ALT. Due on due Goal Urinalysis. Due on due Goal PAP. Due on due Goal BMP fasting. Due on due Goal AST. Due on due Goal Lipid Panel. Due on due Goal Breast exam. Due on due Goal Urinalysis. Due on due Goal PAP. Due on due Goal ALT. Due on due Goal BMP fasting. Due on due Goal Lipid Panel. Due on due Goal Breast exam. Due on due Goal AST. Due on due Goal Tobacco cessation counseling completed Goal PAP. Due on due Goal BMP fasting. Due on due Goal Lipid Panel. Due on due Goal Urinalysis. Due on due Goal AST. Due on due Goal ALT. Due on due Goal Breast exam. Due on due Goal Tobacco cessation counseling completed Goal AST. Due on due Goal Breast exam. Due on due Goal ALT. Due on due Goal Lipid Panel. Due on due Goal PAP. Due on due Goal BMP fasting. Due on due Goal Urinalysis. Due on due Goal Breast exam. Due on due Goal Urinalysis. Due on due Goal ALT. Due on due Goal AST. Due on due Goal Lipid Panel. Due on due Goal BMP fasting. Due on due Goal PAP. Due on due Goal Urinalysis. Due on due Goal AST. Due on due Goal Breast exam. Due on due Goal PAP. Due on due Goal BMP fasting. Due on due Goal ALT. Due on due Goal Lipid Panel. Due on due Referral Referred To: [facility] Mammogram Van [phone] Ordered: Referrals: Mammography Screening and Diagnostic. [facility] Mammogram Van. Diagnostic testing Appointment date/timeframe: Today ordered Referral Referred To: [facility] [address], [place], [phone] Ordered: Referrals: Mammography Screening and Diagnostic. [facility]. Diagnostic testing Appointment date/timeframe: 01/17/2021 ordered Referral Referred To: [facility] CAT Scans [address] [place], [phone] Ordered: Referrals: Radiology. [facility] CAT Scans. Diagnostic testing Appointment date/timeframe: 08/22/2017 ordered Referral Referred To: [facility] Colonoscopy [address], [place], [phone] Ordered: Referrals: Colonoscopy. [facility] Colonoscopy. Diagnostic testing ordered Referral Referred To: [facility] [address], [place], [phone] Ordered: Referrals: Mammography Screening Cntr. [facility]. Diagnostic testing Appointment date/timeframe: 05/01/2017 ordered Referral Referred To: [facility] [address] [place], [phone] Ordered: Referrals: Radiology. [facility]. Diagnostic testing ordered Referral Referred To: [facility] [address] [place], [phone] Ordered: Referrals: Radiology. [facility] ordered Referral Referred To: [facility] OBGYN Ultrasounds [address] [place], [phone] Ordered: Referrals: Radiology. [facility] OBGYN Ultrasounds. Consult Appointment date/timeframe: 03/06/2016 ordered Future Order: Lab Order FIT-DNA (Cologuard) ([id number]), Ordered on: Ordered Future Order: Lab Order FIT/Hemo sure ([id number]), Scheduled for: Ordered Future Order: Lab Order FIT/Hemo sure ([id number]), Scheduled for: Ordered Future Order: Lab Order CBC (H/H , RBC, INDICES, WBC, PLT) ([id number]), Ordered on: Ordered Future Order: Lab Order TSH with Reflex to Free T4 ([id number]), Ordered on: Ordered Future Order: Lab Order FSH (470 ), Appointment on: , Sent on: Sent Future Order: Lab Order Culture, Urine, Routine ([id number]), Scheduled for: Ordered Future Order: Lab Order Urinalys is, Microscopic ([id number]), Scheduled for: Ordered Future Order: Lab Order Urinalys is, Macroscopic (POC) ([id number]), Scheduled for: Ordered Nutrition Recommendation Nutrition therap y completed Nutrition Recommendation Nutrition therap y completed History Of Present Illness Encounter Date Complaint History Of Prese nt Illness for annual exam 58yo for [employer] Eannual exam - last 01/14doesn't feel righteating lots of candy, pepsi, has gained weighttrouble sleepingthyroid hasn't been checked regularly by outside PCP - concernedconsidering HRT for sleep, brain fogno hot flashesone clot of blood 11/18 - none prior or afterHS - would like refill of clinda cream for [id number] - gastric sleeve, lost over 150 pounds, considering skin removal, weight up from prateek - most are expensivebodily lichen planus - seeing derm, unsure of trigger, topical steroid cream and swish/swallow Thyroid do - needs synthroid refillsafe at [facility] 07/11/17 - TLH/RS/Cysto - myoma, polyp, no hyperplasia or malignancylast pap 2015 neg & hpv neg - NAMMG 2015 negMMG 2020 - No ShowCCS - pt cancelled - could drink golytely (most likely due to bariatric surgery) - offer Cologuardcovid vaccine -declinesflu vaccine - accepts for [employer] 56yo for an nual exam - last 3/21HS - would like refill of clinda cream for [id number] - gastric sleeve, lost over 150 pounds, considering skin removal, weight up from prateek - most are expensivebodily lichen planus - seeing derm, unsure of trigger, topical steroid cream and swish/swallow - rtc 2 monthsstill having left breast pain - didn't go to ordered mmgnot SACCS - couldn't drink golytely, try fit [id number] - B12/folate, Hct, a1c, lipds WNL; tsh low but T4 normal - on synthroid with PCP07/11/17 - TLH/RS/Cysto - myoma, polyp, no hyperplasia or malignancylast pap 2016 neg & hpv neg - NAMMG 2015 negMMG 2020 - No ShowCCS - pt cancelled - could drink golytely (most likely due to bariatric surgery) - offer FIT testcovid vaccine - s/p first series and first booster. waiting post steroids fro 2nd booster wwe 55yo for an nual examdark urine, no pain, worriedflushing and nausea/dizzynessdoesn't drink water - pepsi/chocolateHS - would like refill of clinda cream for helpbreast issues gone - due for screening mmgno SA since Jun, 2020 - was dry thendoes want STI testings/p flu vaccine - oscCCS - couldn't drink golytely, try fit testB12 and folate - tsh - will then have go to PCP07/11/17 - TLH/RS/Cysto - myoma, polyp, no hyperplasia or malignancystill planning on plastic surgery due to skin infections in abdominal folds post weight lossh/o Bariatric surg 2014 - sleeve, lost Over 150 pounds - would still like skin removed but too expensivelast pap 2016 neg & hpv neg - NAMMG 2016 negCCS - pt cancelled - could drink golytely (most likely due to bariatric surgery) for [employer] FU 52yo breast issueboth breasts very painful and tender for a couple of weeks since christflsboth breasts were also swollennow the symptoms have imrovedno other symptoms no lumps felt, no nipple dischargeno family hx breast cancerschedule mmgdoing OK without HRT, hot flashes post hyst did resolve07/11/17 - TLH/RS/Cysto - myoma, polyp, no hyperplasia or malignancystill planning on plastic surgery due to skin infections in abdominal folds post weight lossh/o Bariatric surg 2014 - sleeve, lost Over 150 poundslast pap 2016 neg & hpv neg - NAMMG 2016 negCCS - pt cancelledTime [id number] STD testing 52yo same d ay appt, request STI testingstates recently from regular partner and she had UPI with ex-partnerthen reconciled with regular partner who reported dysuria since they had IC ~ 1 week agopt denies specific sx-occ dry feeling, but is concerned re possible STI or UTItook OTC pyridium07/11/17 - TLH/RS/Cysto - myoma, polyp, no hyperplasia or malignancystill planning on plastic surgery due to skin infections in abdominal folds post weight lossh/o Bariatric surg 2014 - sleeve, lost Over 150 poundslast pap 2016 neg & hpv neg - NAMMG 2015 negCCS - pt cancelled Results 52yo fu for PO check - 07/11 TLH/RS/Cystostill feels tired, but is gettiing bettersometimes sore but no pain, had sex a coupel of days ago and slight spottinghaving night sweat and mood lability with thatterrible bilateral back pain when time for mensesno other bleeding, normal void and BMis starting to take all supplements due to gastric [id number] visit - CBC, CMP, TSH WNL10/27 - CT - overall normal, postoperative changes07/11/17 - TLH/RS/Cysto - myoma, polyp, no hyperplasia or malignancystill planning on plastic surgery due to skin infections in abdominal folds post weight lossh/o Bariatric surg 2014 - sleeve, lost Over 150 poundslast pap 2016 neg & hpv neg - NAMMG 2016 negCCS - pending - ordered but pt cancelled, will retask referral F/U Post-op 52yo fu for PO 4 weekin ED 1 1/2 weeks ago - bleeding, no bleeding post, WBC and HGB normal, CT normalfeels like odor and ddischarge from vagina since but no bleedingfeels like low grade temps and just like she's dragging - doesn't feel rightdid start eating better and get her appetite back last weekpain controlled, nomral void and BM, no n/vpelvic rest07/11/17 - TLH/RS/Cysto - myoma, polyp, no hyperplasia or malignancystill planning on plastic surgery due to skin infections in abdominal folds post weight lossh/o Bariatric surg 2014 - sleevelost >150lbs not compliant taking all of ther supplements: takes multivitamin & biotin not taking postassium, calcium or iron plan for skin removal by end of 2016last pap 2015 neg & hpv neg - NAMMG 2016 negCCS - pending 2wk p.o. 52yo fu for PO 2 week 07/11/17 - TLH/RS/Cysto - myoma, polyp, no hyperplasia or malignancystill planning on plastic surgery due to skin infections in abdominal folds post weight lossno f/c/n/vresting, pain controllednot SAh/o Bariatric surg 2014 - sleevelost >150lbs not compliant taking all of ther supplements: takes multivitamin & biotin not taking postassium, calcium or iron plan for skin removal by end of 2016last pap 2015 neg & hpv neg - NAMMG 2015 neg heavy bleeding 52yo fu for AUB- still bleeding, heaving, with clots, lysteda lighted, but now back, didn't hand picker proveracannot remember synthroid dose but will call PCP with the TSH/T4 results for possible adjustements/p D&C, recently with 2 periods that were long, 7 days, and very heavy with cloth/o anemia, low iron possible from periods but also due to gastric bypass04/12 Hgb normalrecent bleeding stopped with proveraconsidering hysterectomy with cont bleedingsome hot flashess/p 2 Em Bx attempts in officec/o irregular bleeding VB Sep 13 until -10/05, bleeding stoppedP. u/s @ [facility] on 03/06/16:Uterus: 7.3 x 5.5 x 5.8 cm, vol 121.9ml Fibroid 3.7 x 3.3 x 3.4cm, intramural fibroidstripe 7.1 mm R ovary 2.4 x 1.5 x 1.8L ovary 3.2 x 2.0 x 1.7 cm w/ simple cyct 1.7 x 2.1 x 1.3 x 1.7SA 1 partner x 1 most of the time condoms h/o Bariatric surg 2015 - sleevelost >150lbs not compliant taking all of ther supplements: takes multivitamin & biotin not taking postassium, calcium or iron plan for skin removal by end of 2016last pap 2016 neg & hpv neg MMG 2015 neg Surgical Consult 51yo fu fo r MAYs/p D&C, recently with 2 periods that were long, 7 days, and very heavy with cloth/o anemia, low iron possible from periods but also due to gastric bypass04/12 Hgb normalrecent bleeding stopped with proveraconsidering hysterectomy with cont bleedingsome hot flashess/p 2 Em Bx attempts in officec/o irregular bleeding VB Sep 13 until -10/05, bleeding stoppedP. u/s @ [facility] on 03/06/16:Uterus: 7.3 x 5.5 x 5.8 cm, vol 121.9ml Fibroid 3.7 x 3.3 x 3.4cm, intramural fibroidstripe 7.1 mm R ovary 2.4 x 1.5 x 1.8L ovary 3.2 x 2.0 x 1.7 cm w/ simple cyct 1.7 x 2.1 x 1.3 x 1.7SA 1 partner x 1 most of the time condoms h/o Bariatric surg 2014 lost >150lbs not compliant taking all of ther supplements: takes multivitamin & biotin not taking postassium, calcium or iron plan for skin removal by end of 2016outside PCP h/o Bariatric surg, lost over 150lblast pap 2016 neg & hpv neg MMG 2015 neg annual exam 51yo for an nual exams/p D&C 01/10, 2 polyps removed, path benignregular menses until recentlyperiod first week of march, restarted today, heavy, large clotsh/o anemia, has had iron infusions in past, not taking po ironwould like hystP. u/s @ [facility] on 03/06/16:Uterus: 7.3 x 5.5 x 5.8 cm, vol 121.9ml Fibroid 3.7 x 3.3 x 3.4cm, intramural fibroidstripe 7.1 mm R ovary 2.4 x 1.5 x 1.8L ovary 3.2 x 2.0 x 1.7 cm w/ simple cyct 1.7 x 2.1 x 1.3 x 1.7+SA, same partner for several years, condoms most of the timedesires STI screenh/o Bariatric surg 2014 lost ~180lbs not compliant taking all of ther supplements: takes multivitamin & biotin not taking postassium, calcium or iron outside PCP h/o Bariatric surg, lost over 150lblast pap 2015 neg & hpv neg MMG 2015 negno colonoscopy h/o Surgery Consult 51yo for D& C for AUBno bleeding post proveras/p 2 Em Bx attempts in officec/o irregular bleeding VB Sep 13 until , bleeding stoppedP. u/s @ [facility] on 03/06/16:Uterus: 7.3 x 5.5 x 5.8 cm, vol 121.9ml Fibroid 3.7 x 3.3 x 3.4cm, intramural fibroidstripe 7.1 mm R ovary 2.4 x 1.5 x 1.8L ovary 3.2 x 2.0 x 1.7 cm w/ simple cyct 1.7 x 2.1 x 1.3 x 1.7SA 1 partner x 1 most of the time condoms h/o Bariatric surg 2014 lost >150lbs not compliant taking all of ther supplements: takes multivitamin & biotin not taking postassium, calcium or iron outside PCP h/o Bariatric surg, lost over 150lblast pap 2016 neg & hpv neg MMG 2016 neg EMBX 51yo [id number] fo r Embx Provera for AUB on /o irregular bleeding VB Sep 13 until , bleeding stoppedP. u/s @ [facility] on 03/06/16:Uterus: 7.3 x 5.5 x 5.8 cm, vol 121.9ml Fibroid 3.7 x 3.3 x 3.4cm, intramural fibroidstripe 7.1 mm R ovary 2.4 x 1.5 x 1.8L ovary 3.2 x 2.0 x 1.7 cm w/ simple cyct 1.7 x 2.1 x 1.3 x 1.7SA 1 partner x 1 most of the time condoms c/o discomfort w/ urination x 2wks taking uristat occasional dyspareunia occasional dysuria +lower back pain denies fevers or chills h/o Bariatric surg 2014 lost >150lbs not compliant taking all of ther supplements: takes multivitamin & biotin not taking postassium, calcium or iron outside PCP h/o Bariatric surg, lost over 150lblast pap 2016 neg & hpv neg MMG 2015 neg abnormal bleeding 51yo c/o i rregular bleeding VB Sep 13 until nowlike a normal cycle, occasional clots, light flow today previous cycles normal cycles usually the beginning of the month denies cramping P. u/s @ [facility] on 03/06/16:Uterus: 7.3 x 5.5 x 5.8 cm, vol 121.9ml Fibroid 3.7 x 3.3 x 3.4cm, intramural fibroidstripe 7.1 mm R ovary 2.4 x 1.5 x 1.8L ovary 3.2 x 2.0 x 1.7 cm w/ simple cyct 1.7 x 2.1 x 1.3 x 1.7SA 1 partner x 1 most of the time condoms occasional dyspareunia occasional dysuria +lower back pain h/o Bariatric surg 2014 lost >150lbs not compliant taking all of ther supplements: takes multivitamin & biotin not taking postassium, calcium or iron outside PCP h/o Bariatric surg, lost over 150lblast pap 2016 neg & hpv neg MMG 2015 neg annual exam 50yo for annual examLMP 01/07 - regular, then brown spotting week of (at times after sex)no painno hot flashes/night sweats+ SA - 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 Aerobic exercise for about 30 minutes 3-5 times a week (>150minutes/week). 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 Giving encouragement to exercise Related to Body mass index [BMI] 28.0-28.9, adult Prescribed diet education Relate d to Body mass index [BMI] 28.0-28.9, adult Schedule WWE Related to Encou nter for screening for infections with a predominantly sexual mode of transmission Use condoms Related to Encou nter for screening for infections with a predominantly sexual mode of transmission Rest, ibuprofen and percocet as needed Related to Encntr for f/u exam aft trtmt for cond oth than malig neoplm Flagyl two tablets d aily for 7 days, no alcohol Related to Encntr for f/u exam aft trtmt for cond oth than malig neoplm Pelvic rest, return 4 weeks Rela genevieve to Encntr for f/u exam aft trtmt for cond oth than malig neoplm Discussed nutrition and increased physical activity Related to Abnormal uterine and vaginal bleeding, unspecified Provera to stop blelonnie martell, Plan for Hysterectomy, Will call Related to Abnormal uterine and vaginal bleeding, unspecified Discussed nutrition and increased physical activity Related to Abnormal uterine and vaginal bleeding, unspecified Blood work and will call Related to Abnormal uterine and vaginal bleeding, unspecified Monthly self-breast exams. Relat ed to Encounter for gynecological examination (general) (routine) without abnormal findings Use condoms 100% of the time. Re lated to Encounter for screening for infections with a predominantly sexual mode of transmission Keep appointment for mammogram. Related to Encounter for screening mammogram for malignant neoplasm of breast Keep appointment for colonoscopy . Related to Encounter for screening for malignant neoplasm of colon Discussed nutrition and increased physical activity. Stop Smoking. 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 congrats on loss!! 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
[2024-12-02 12:13] LABS: Hematocrit 40.1 % (37.0-47.0); Hemoglobin 12.1 g/dL (12.0-15.0); Mean Corpuscular HGB Conc 30.2 g/dl (32-36); Mean Corpuscular Hemoglobin 27.3 pg (26-34); Mean Corpuscular Volume 90.3 fl (80-100); Mean Platelet Volume 8.7 fl (7.4-10.4); Platelet Count Result 252 k/mm3 (150-375); Red Blood Count 4.44 M/mm3 (4.2-5.4); Red Cell Distribution Width 13.9 % (11.5-14.5); White Blood Count 6.2 K/mm3 (4.5-10.0)
[2024-12-02 12:26] LABS: Hemoglobin A1C 5.3 % (<5.7)
[2024-12-02 12:52] LABS: Alanine Aminotransferase 73 U/L (6-35); Albumin Level 4.2 g/dL (3.5-5.1); Alkaline Phosphatase 125 U/L (38-126); Anion Gap 9 mmol/L (4-12); Aspartate Amino Transferase 34 U/L (14-36); Bilirubin,Total 0.5 mg/dL (0.2-1.3); Blood Urea Nitrogen 15 mg/dL (7-17); Calcium 9.5 mg/dL (8.4-10.2); Carbon Dioxide 26 mmol/L (22-30); Chloride 105 mmol/L (98-107); Cholesterol 246 mg/dL (0-200); Estimated Glomerular Filt Rate > 60; Glucose 86 mg/dL (65-110); HDL Direct 79 mg/dL; Sodium 140 mmol/L (137-145); Triglycerides 82 mg/dL (<150)
[2024-12-02 13:03] LABS: LDL Cholesterol Direct 129 mg/dL
[2024-12-02 13:07] LABS: Free T4 Free Thyroxine 2.03 ng/dL (0.78-2.19); Vitamin D 25 Hydroxy 13.1 ng/mL
[2024-12-02 13:22] LABS: Thyroid Stimulating Hormone 0.219 uIU/mL (0.465-4.680)
== END 2024-12-02 11:54 | disposition home or self-care (01) ==
LOC: ANHLAB 11:54
PROVIDERS: PCP Nurse Practitioner; Visit Provider Nurse Practitioner
DX: E53.8 Deficiency of other specified B group vitamins (principal); D50.9 Iron deficiency anemia, unspecified; E03.9 Hypothyroidism, unspecified; E55.9 Vitamin D deficiency, unspecified; E78.5 Hyperlipidemia, unspecified; R73.03 Prediabetes
CPT/HCPCS: 36415; 80053; 80061; 82306; 82607; 83036; 84439; 84443; 85027